=== PATIENT | male | born 1945 | race Caucasian/White ===

== ENCOUNTER 2022-12-08 10:46 | Outpatient (AMB) | payer OTHER, SELFPAY ==
--- NOTE | 2022-12-08 11:11 | A.OFFPC_ITS ---
Vital Signs 12/08/22 11:12 Height 5 ft 10 in Weight 175 lb BMI 25.1 BP 118/64 Blood Pressure Location Rt brachial Position Sitting Pulse 50 Pulse Source Pulse Oximeter Pulse Oximetry (%) 97 Oxygen Delivery Method Room Air Intake Visit Reasons: 2 month follow up Intake Note: Pt is here today for 2 months follow up visit on labs. Allergies No Known Allergies Allergy (Verified 12/08/22 11:20) Medication List - Last Reconciled 12/08/22 by Magalys Green MD aspirin 81 mg PO DAILY dapagliflozin propanediol (Farxiga) 10 mg PO DAILY flash glucose sensor (FreeStyle David 14 Day Sensor kit) As directed lisinopril 10 mg PO DAILY metformin 500 mg PO BID metoprolol succinate ER 25 mg PO DAILY rosuvastatin 10 mg PO DAILY semaglutide (Ozempic) 0.25 mg (0.368 mL) subcut QWEEK semaglutide (Ozempic) 0.5 mg (0.736 mL) subcut QWEEK Tobacco use date assessed: 12/08/22 Last assessed Fall Risk: 12/08/22 Dental Screening Dental Screen Date: 12/08/22 Did you have a dental visit in the last 12 months?: Yes Did you have a dental problem in the last 6 months where you did not have access to dental care?: No Was dental information given to patient?: Patient has dentist HPI 2 month follow up HPI Details Patient presents for the follow-up of type 2 diabetes hypertension hyperlipidemia chronic kidney disease stage 3. Patient started Ozempic 1 week ago. He reports fluctuating blood glucose occasionally low in the mornings with the readings below 50 and then increasing to over 200 after breakfast. Patient yet usually has high load of carbohydrates for breakfast including bread and rice cereal. He occasionally skips lunch working or has a sandwich in the hospital cafeteria. Patient usually has well-balanced and occasionally snack at night. He plays golf once a week otherwise does not exercise regularly. [facility] Medical History History of varicocele Surgical History Hx of tonsillectomy Family History Father No problems noted. Mother Cancer, Onset Age: 79 Sister Stroke Social History Housing: House Patient Tobacco Use Status: Never used Tobacco e-Cigarette/Vaping Use: Never Used Current occupational status: employed Cognitive needs: No Hearing needs: No Vision needs: Yes Questionnaire Thrive Questionnaire Date Thrive assessed: 07/07/22 KEISHA-7 AMB Questionnaire KEISHA-7 Date KEISHA - 7 assessed: 07/07/22 Source: Developed by Drs. Brendon Mckeon, Sandra Lopez, Dhruv Mcginnis and colleagues, with an educational cristin from [employer]. Review of Systems Const All systems reviewed & are unremarkable except as noted in HPI and below Reports no additional complaints Eyes Reports no additional complaints ENT Reports no additional complaints Card Reports no additional complaints Resp Reports no additional complaints GI Reports no additional complaints Reports no additional complaints Physical exam (Primary Care) Vital Signs: Last Vital Signs Pulse 50 12/08/22 11:12 BP 118/64 12/08/22 11:12 Pulse Ox 97 12/08/22 11:12 Oxygen Delivery Method Room Air 12/08/22 11:12 BMI result Body Mass Index 25.1 Tobacco/Smoking Status: Tobacco use Status Tobacco use date assessed 12/08/22 12/08/22 11:21 Patient Tobacco Use Status Never used Tobacco 12/08/22 11:21 e-Cigarette/Vaping Use Never Used 12/08/22 11:14 Thrive Assessment: Date of Thrive Assessment Date Thrive assessed 07/07/22 12/08/22 11:14 Const General: no acute distress HENMT Ears: hearing grossly normal bilaterally Resp Effort & Inspection: normal respiratory effort Auscultation: clear to auscultation bilaterally Cardio Rhythm: regular rhythm Heart sounds: S1 normal heart sound present and S2 normal heart sound present Assessment and Plan Assessment & Plan (1) CKD (chronic kidney disease) stage 3, GFR 30-59 ml/min: Comment: Normal renal ultrasound Code(s): N18.30 - Chronic kidney disease, stage 3 unspecified Plan: Avoid NSAIDs monitor renal function. 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 (4) DM type 2 (diabetes mellitus, type 2): Comment: >10 yrs, borderline diabetic retinopathy, ophthalmology exam annually Code(s): E11.9 - Type 2 diabetes mellitus without complications Plan: A1c is persistently high at 9.8. ADA diet regular physical activity discussed with the patient. Patient was advised to stop taking glyburide with metformin combination because of episodes of hypoglycemia and worsening renal function. Metformin 500 mg twice a day is prescribed instead. He was advised to continue Farxiga and Ozempic increasing the dose to 0.5 mg after the a month of 0.25 mg. Patient was advised to stop taking Actos. He will continue to monitor his blood glucose before and 2 hours after meals and if blood glucose is above 200 2 hours after meal short-acting insulin will be added before meals. Follow-up in 2 months with a fasting labs before Orders: Orders Vitamin B12 and Folate 2 Months D64.9 - Anemia, unspecified, E11.9 - Type 2 diabetes mellitus without complications, I10 - Essential (primary) hypertension, N18.30 - Chronic kidney disease, stage 3 unspecified Comprehensive [place] [facility] Panel Fast 2 Months D64.9 - Anemia, unspecified, E11.9 - Type 2 diabetes mellitus without complications, I10 - Essential (primary) hypertension, N18.30 - Chronic kidney disease, stage 3 unspecified Ferritin 2 Months D64.9 - Anemia, unspecified, E11.9 - Type 2 diabetes mellitus without complications, I10 - Essential (primary) hypertension, N18.30 - Chronic kidney disease, stage 3 unspecified Hemoglobin A1c 2 Months D64.9 - Anemia, unspecified, E11.9 - Type 2 diabetes mellitus without complications, I10 - Essential (primary) hypertension, N18.30 - Chronic kidney disease, stage 3 unspecified IRON PROFILE 2 Months D64.9 - Anemia, unspecified, E11.9 - Type 2 diabetes mellitus without complications, I10 - Essential (primary) hypertension, N18.30 - Chronic kidney disease, stage 3 unspecified Complete Blood Count Auto Diff 2 Months D64.9 - Anemia, unspecified, E11.9 - Type 2 diabetes mellitus without complications, I10 - Essential (primary) hypertension, N18.30 - Chronic kidney disease, stage 3 unspecified Reticulocyte Count 2 Months D64.9 - Anemia, unspecified, E11.9 - Type 2 diabetes mellitus without complications, I10 - Essential (primary) hypertension, N18.30 - Chronic kidney disease, stage 3 unspecified Medications: New metformin 500 mg PO BID 180 tabs 0RF Discontinued pioglitazone Discontinued Reason: Doctor's Order 45 mg PO DAILY 90 tabs 3RF glyburide-metformin 5-500 mg Discontinued Reason: Doctor's Order 2 tabs PO BID 360 tabs 1RF Coding Level of Care Code Est Pt Level 4 (57690) Diagnoses CKD (chronic kidney disease) stage 3, GFR 30-59 ml/min N18.30 Anemia D64.9 HTN (hypertension) I10 DM type 2 (diabetes mellitus, type 2) E11.9
[2022-12-08 11:12] VITALS: BP 118/64; PULSE 50; O2SAT 97; BMI 25.1
== END 2022-12-08 12:47 | disposition home or self-care (01) ==
PROVIDERS: PCP Internal Medicine; Visit Provider Internal Medicine
DX: I12.9 Hypertensive chronic kidney disease with stage 1 through stage 4 chronic kidney disease, or unspecified chronic kidney disease (principal); E11.22 Type 2 diabetes mellitus with diabetic chronic kidney disease; N18.30 Chronic kidney disease, stage 3 unspecified; D64.9 Anemia, unspecified
CPT/HCPCS: 99214

== ENCOUNTER 2023-01-08 15:24 | Outpatient (AMB) | payer OTHER, SELFPAY ==
[2023-01-08 15:26] VITALS: BP 106/64; PULSE 59; O2SAT 100; BMI 23.8
--- NOTE | 2023-01-08 15:26 | A.OFFPC_ITS ---
Vital Signs 01/08/23 15:26 Height 5 ft 10 in Weight 166 lb BMI 23.8 BP 106/64 Blood Pressure Location Rt brachial Position Sitting Pulse 59 Pulse Source Pulse Oximeter Pulse Oximetry (%) 100 Oxygen Delivery Method Room Air Intake Visit Reasons: elevated glucose Intake Note: Pt is here today for a follow up visit. Allergies No Known Allergies Allergy (Verified 01/08/23 15:28) Medication List - Last Reconciled 01/08/23 by Magalys Green MD aspirin 81 mg PO DAILY dapagliflozin propanediol (Farxiga) 10 mg PO DAILY flash glucose sensor (FreeStyle David 14 Day Sensor kit) As directed lisinopril 10 mg PO DAILY metformin 500 mg PO BID metoprolol succinate ER 25 mg PO DAILY rosuvastatin 10 mg PO DAILY semaglutide (Ozempic) 0.25 mg (0.368 mL) subcut QWEEK semaglutide (Ozempic) 0.5 mg (0.736 mL) subcut QWEEK Tobacco use date assessed: 12/08/22 HPI elevated glucose HPI Details Patient complains about losing weight decreased appetite and episodes of lightheadedness and increase blood glucose to over 300s. He increased Ozempic mg and his symptoms worsen. Patient denies polyuria polydipsia. Patient has been eating better diet. [facility] Medical History History of varicocele Surgical History Hx of tonsillectomy Family History Father No problems noted. Mother Cancer, Onset Age: 79 Sister Stroke Social History Housing: House Patient Tobacco Use Status: Never used Tobacco e-Cigarette/Vaping Use: Never Used Current occupational status: employed Cognitive needs: No Hearing needs: No Vision needs: Yes Questionnaire Thrive Questionnaire Date Thrive assessed: 07/07/22 KEISHA-7 AMB Questionnaire KEISHA-7 Date KEISHA - 7 assessed: 07/07/22 Source: Developed by Drs. Brendon Mckeon, Sandra Lopez, Dhruv Mcginnis and colleagues, with an educational cristin from [employer]. Review of Systems Const All systems reviewed & are unremarkable except as noted in HPI and below Reports no additional complaints Eyes Reports no additional complaints ENT Reports no additional complaints Card Reports no additional complaints Resp Reports no additional complaints GI Reports no additional complaints Physical exam (Primary Care) Vital Signs: Last Vital Signs Pulse 59 01/08/23 15:26 BP 106/64 01/08/23 15:26 Pulse Ox 100 01/08/23 15:26 Oxygen Delivery Method Room Air 01/08/23 15:26 BMI result Body Mass Index 23.8 Tobacco/Smoking Status: Tobacco use Status Tobacco use date assessed 12/08/22 01/08/23 15:31 Patient Tobacco Use Status Never used Tobacco 01/08/23 15:31 e-Cigarette/Vaping Use Never Used 01/08/23 15:31 Thrive Assessment: Date of Thrive Assessment Date Thrive assessed 07/07/22 01/08/23 15:31 Const General: no acute distress HENMT Face and sinus: Yes normal facial exam Neck Neck: Yes supple Resp Effort & Inspection: normal respiratory effort Auscultation: clear to auscultation bilaterally Cardio Rhythm: regular rhythm Heart sounds: S1 normal heart sound present and S2 normal heart sound present GI Palpation (GI): Soft to palpation Percussion: Yes normal to percussion Auscultation: normal bowel sounds Assessment and Plan Assessment & Plan (1) CKD (chronic kidney disease) stage 3, GFR 30-59 ml/min: Comment: Normal renal ultrasound Code(s): N18.30 - Chronic kidney disease, stage 3 unspecified Plan: Patient had a comprehensive panel at [place] this morning will obtain the results. (2) APC (atrial premature contractions): Comment: Echo 08/13 LNEF 60%, mild calcification of mitral and aortic valves, mild MR Code(s): I49.1 - Atrial premature depolarization (3) HTN (hypertension): Code(s): I10 - Essential (primary) hypertension Plan: Blood pressure is low and lisinopril will be decreased to 5 mg a day (4) DM type 2 (diabetes mellitus, type 2): Comment: >30 yrs, borderline diabetic retinopathy, ophthalmology exam annually Code(s): E11.9 - Type 2 diabetes mellitus without complications Plan: Blood work from this morning is pending. Ozempic will be discontinued and patient will be started 10 u of Lantus for the 1st week then increase to 20 units and Humalog up to 10 units before each meal for the glucose over 200. Patient will continue metformin and Farxiga for now. f/u in January Orders: Orders TSH reflex Free T4 1 Month E11.9 - Type 2 diabetes mellitus without complications, E78.5 - Hyperlipidemia, unspecified, I10 - Essential (primary) hypertension Lipid Panel 1 Month E11.9 - Type 2 diabetes mellitus without complications, E78.5 - Hyperlipidemia, unspecified, I10 - Essential (primary) hypertension Referrals Nephrology Referral N18.30 - Chronic kidney disease, stage 3 unspecified Medications: New insulin lispro (Humalog KwikPen (U-100) Insulin) 10 units (0.1 mL) subcut TID 15 mL 4RF lisinopril 5 mg PO DAILY 90 tabs 0RF insulin glargine (Lantus Solostar U-100 Insulin) 20 units (0.2 mL) subcut QAM 15 mL 4RF Discontinued semaglutide (Ozempic) for 4 weeks, Discontinued Reason: Doctor's Order 0.25 mg (0.368 mL) subcut QWEEK 3 mL 0RF semaglutide (Ozempic) after 4 weeks for 0.25 of Ozempic Discontinued Reason: Doctor's Order 0.5 mg (0.736 mL) subcut QWEEK 3 mL 0RF Coding Level of Care Code Est Pt Level 4 (37632) Diagnoses CKD (chronic kidney disease) stage 3, GFR 30-59 ml/min N18.30 APC (atrial premature contractions) I49.1 HTN (hypertension) I10 DM type 2 (diabetes mellitus, type 2) E11.9
== END 2023-01-08 16:12 | disposition home or self-care (01) ==
LOC: HO.HMGC 15:24
PROVIDERS: PCP Internal Medicine; Visit Provider Internal Medicine
DX: I12.9 Hypertensive chronic kidney disease with stage 1 through stage 4 chronic kidney disease, or unspecified chronic kidney disease (principal); N18.30 Chronic kidney disease, stage 3 unspecified; E11.22 Type 2 diabetes mellitus with diabetic chronic kidney disease; I49.1 Atrial premature depolarization
CPT/HCPCS: 99214

== ENCOUNTER 2023-02-16 11:49 | Outpatient (AMB) | payer OTHER, SELFPAY ==
--- NOTE | 2023-02-16 12:14 | A.OFFPC_ITS ---
Vital Signs 02/16/23 12:15 02/16/23 14:58 Height 5 ft 10 in Weight 177 lb BMI 25.4 BP 132/62 110/78 Blood Pressure Location Lt brachial Rt brachial Position Sitting Sitting Pulse 49 L Pulse Source Pulse Oximeter Pulse Oximetry (%) 97 Oxygen Delivery Method Room Air Intake Visit Reasons: 2 month follow up Intake Note: Pt is here today for his 2 mo, f/u Allergies No Known Allergies Allergy (Verified 01/08/23 15:28) Medication List - Last Reconciled 02/16/23 by Magalys Green MD aspirin 81 mg PO DAILY dapagliflozin propanediol (Farxiga) 10 mg PO DAILY flash glucose sensor (FreeStyle David 14 Day Sensor kit) As directed insulin lispro (Humalog KwikPen (U-100) Insulin) 10 units (0.1 mL) subcut TID lisinopril 5 mg PO DAILY metformin 500 mg PO BID metoprolol succinate ER 25 mg PO DAILY rosuvastatin 10 mg PO DAILY Tobacco use date assessed: 02/16/23 Fall risk assessment: No Falls in past year Last assessed Fall Risk: 02/16/23 Dental Screening Dental Screen Date: 02/16/23 Did you have a dental visit in the last 12 months?: Yes Did you have a dental problem in the last 6 months where you did not have access to dental care?: Yes Was dental information given to patient?: Patient has dentist HPI 2 month follow up HPI Details Patient presents for the follow-up of type 2 diabetes. He has been taking Lantus 10 units and Humalog before meals between 8-10 units. He reports the highest blood glucose around mid day 14:00 after lunch, up to 200 and occasionally hypoglycemia to 60s at night. Patient eats often carbohydrates including sandwiches and cereals. Hypertension hyperlipidemia are controlled on current medications. [facility] Medical History History of varicocele Surgical History Hx of tonsillectomy Family History Father No problems noted. Mother Cancer, Onset Age: 79 Sister Stroke Social History Housing: House Patient Tobacco Use Status: Never used Tobacco e-Cigarette/Vaping Use: Never Used Current occupational status: employed Cognitive needs: No Hearing needs: No Vision needs: Yes Questionnaire Thrive Questionnaire Date Thrive assessed: 07/07/22 KEISHA-7 AMB Questionnaire KEISHA-7 Date KEISHA - 7 assessed: 07/07/22 Source: Developed by Drs. Brendon Mckeon, Sandra Lopez, Dhruv Mcginnis and colleagues, with an educational cristin from [employer]. Review of Systems Const All systems reviewed & are unremarkable except as noted in HPI and below Reports no additional complaints Eyes Reports no additional complaints ENT Reports no additional complaints Card Reports no additional complaints Resp Reports no additional complaints GI Reports no additional complaints Reports no additional complaints Physical exam (Primary Care) Vital Signs: Last Vital Signs Pulse 49 L 02/16/23 12:15 BP 132/62 02/16/23 12:15 Pulse Ox 97 02/16/23 12:15 Oxygen Delivery Method Room Air 02/16/23 12:15 BMI result Body Mass Index 25.4 Tobacco/Smoking Status: Tobacco use Status Tobacco use date assessed 02/16/23 02/16/23 12:18 Patient Tobacco Use Status Never used Tobacco 02/16/23 12:15 e-Cigarette/Vaping Use Never Used 02/16/23 12:15 Thrive Assessment: Date of Thrive Assessment Date Thrive assessed 07/07/22 02/16/23 12:15 Const General: no acute distress HENIN General nose exam: Normal external nose present Mouth: Normal oral and palatal mucosa present Eyes General: appearance normal, both eyes and all related structures Neck Neck: Yes no lymphadenopathy and Yes supple Resp Effort & Inspection: normal respiratory effort Auscultation: clear to auscultation bilaterally Cardio Rhythm: regular rhythm Heart sounds: S1 normal heart sound present and S2 normal heart sound present GI Inspection: Yes normal to inspection Palpation (GI): Soft to palpation Percussion: Yes normal to percussion Assessment and Plan Assessment & Plan (1) CKD (chronic kidney disease) stage 3, GFR 30-59 ml/min: Comment: Normal renal ultrasound Code(s): N18.30 - Chronic kidney disease, stage 3 unspecified Plan: Monitor renal function avoid NSAIDs and continue Farxiga (2) Anemia: Comment: chronic disease, normal iron studies and B12 level 01/13 Code(s): D64.9 - Anemia, unspecified (3) DM type 2 (diabetes mellitus, type 2): Comment: >30 yrs, borderline diabetic retinopathy, ophthalmology exam annually Code(s): E11.9 - Type 2 diabetes mellitus without complications Plan: Improving improving glycemic control, ADA diet, decreasing simple carbohydrates,intake increasing protein and polyunsaturated fats intake recommend, regular physical activity discussed with the patient. He was advised to increase Humalog to 12-14 units before lunch with the largest carbohydrate load and have a snack before dinner to avoid hypoglycemia at night. Pt will continue the same medications and follow-up in 2 months with a fasting labs before (4) Hyperlipemia: Code(s): E78.5 - Hyperlipidemia, unspecified Plan: Continue statin Orders: Orders Complete Blood Count Auto Diff 2 Months D64.9 - Anemia, unspecified, E11.9 - Type 2 diabetes mellitus without complications, E78.5 - Hyperlipidemia, unspecif ied, N18.30 - Chronic kidney disease, stage 3 unspecified, Z98.890 - Other specified postprocedural states Lipid Panel 2 Months D64.9 - Anemia, unspecified, E11.9 - Type 2 diabetes mellitus without complications, E78.5 - Hyperlipidemia, unspecified, N18.30 - Chronic kidney disease, stage 3 unspecified, Z98.890 - Other specified postprocedural states Microalbumin, Random (w Creat) 2 Months D64.9 - Anemia, unspecified, E11.9 - Type 2 diabetes mellitus without complications, E78.5 - Hyperlipidemia, unspecified, N18.30 - Chronic kidney disease, stage 3 unspecified, [id number] - Other specified postprocedural states Comprehensive [place]. Panel Fast 2 Months D64.9 - Anemia, unspecified, E11.9 - Type 2 diabetes mellitus without complications, E78.5 - Hyperlipidemia, unspecified, N18.30 - Chronic kidney disease, stage 3 unspecified, Z98.890 - Other specified postprocedural states Hemoglobin A1c 2 Months D64.9 - Anemia, unspecified, E11.9 - Type 2 diabetes mellitus without complications, E78.5 - Hyperlipidemia, unspecified, N18.30 - Chronic kidney disease, stage 3 unspecified, Z98.890 - Other specified postprocedural states Coding Level of Care Code Est Pt Level 4 (07891) Diagnoses CKD (chronic kidney disease) stage 3, GFR 30-59 ml/min N18.30 Anemia D64.9 DM type 2 (diabetes mellitus, type 2) E11.9 Hyperlipemia E78.5
[2023-02-16 12:15] VITALS: BP 132/62; PULSE 49; O2SAT 97; BMI 25.4
[2023-02-16 14:58] VITALS: BP 110/78
== END 2023-02-16 15:02 | disposition home or self-care (01) ==
PROVIDERS: PCP Internal Medicine; Visit Provider Internal Medicine
DX: E11.22 Type 2 diabetes mellitus with diabetic chronic kidney disease (principal); N18.30 Chronic kidney disease, stage 3 unspecified; D64.9 Anemia, unspecified; E78.5 Hyperlipidemia, unspecified
CPT/HCPCS: 99214

== ENCOUNTER 2023-04-13 11:56 | Outpatient (AMB) | payer OTHER, SELFPAY ==
[2023-04-13 12:04] VITALS: BP 108/60; PULSE 48; O2SAT 98
--- NOTE | 2023-04-13 12:04 | MHC.PC.OV ---
Vital Signs 04/13/23 12:04 Height 5 ft 10 in BP 108/60 Blood Pressure Location Rt brachial Position Sitting Pulse 48 L Pulse Source Pulse Oximeter Pulse Oximetry (%) 98 Oxygen Delivery Method Room Air Intake Visit Reasons: 2 month follow up Intake Note: pt is here for 2 month f/u dm Residential Life Director Required: No Allergies No Known Allergies Allergy (Verified 04/13/23 12:05) Medication List - Last Reconciled 04/13/23 by Magalys Green MD aspirin 81 mg PO DAILY dapagliflozin propanediol (Farxiga) 10 mg PO DAILY flash glucose sensor (FreeStyle David 14 Day Sensor kit) As directed insulin lispro (Humalog KwikPen (U-100) Insulin) 10 units (0.1 mL) subcut TID lisinopril 5 mg PO DAILY metformin 500 mg PO BID metoprolol succinate ER 25 mg PO DAILY rosuvastatin 10 mg PO DAILY Tobacco use date assessed: 02/16/23 Fall risk assessment: No Falls in past year Last assessed Fall Risk: 04/13/23 Dental Screening Dental Screen Date: 04/13/23 Did you have a dental visit in the last 12 months?: Yes Did you have a dental problem in the last 6 months where you did not have access to dental care?: No Was dental information given to patient?: Patient has dentist HPI 2 month follow up HPI Details Patient presents for the follow-up. He reports improved blood glucose control but getting spikes up to 200 after lunch followed by dipping of glucose to less than 70 4 hours after lunch. Patient usually eats lunch in cafeteria with a higher carbohydrate load. He denies symptomatic hypoglycemic episode. He has been taking 12 units of Lantus at night and 6-10 before meals. [facility]LY [facility] Medical History History of varicocele Surgical History Hx of tonsillectomy Family History Father No problems noted. Mother Cancer, Onset Age: 79 Sister Stroke Social History Housing: House Patient Tobacco Use Status: Never used Tobacco e-Cigarette/Vaping Use: Never Used Current occupational status: employed Cognitive needs: No Hearing needs: No Vision needs: Yes Questionnaire Thrive Questionnaire Date Thrive assessed: 07/07/22 KEISHA-7 AMB Questionnaire KEISHA-7 Date KEISHA - 7 assessed: 07/07/22 Source: Developed by Drs. Brendon Mckeon, Sandra Lopez, Dhruv Mcginnis and colleagues, with an educational cristin from [employer]. Review of Systems Const All systems reviewed & are unremarkable except as noted in HPI and below Reports no additional complaints Eyes Reports no additional complaints ENT Reports no additional complaints Card Reports no additional complaints Resp Reports no additional complaints GI Reports no additional complaints Reports no additional complaints Physical exam (Primary Care) Vital Signs: Last Vital Signs Pulse 48 L 04/13/23 12:04 BP 108/60 04/13/23 12:04 Pulse Ox 98 04/13/23 12:04 Oxygen Delivery Method Room Air 04/13/23 12:04 Tobacco/Smoking Status: Tobacco use Status Tobacco use date assessed 02/16/23 04/13/23 12:05 Patient Tobacco Use Status Never used Tobacco 04/13/23 12:05 e-Cigarette/Vaping Use Never Used 04/13/23 12:05 Thrive Assessment: Date of Thrive Assessment Date Thrive assessed 07/07/22 04/13/23 12:05 Const General: no acute distress HENMT Head: Yes normal to inspection Eyes General: appearance normal, both eyes and all related structures Neck Neck: Yes no lymphadenopathy and Yes supple Resp Effort & Inspection: normal respiratory effort Auscultation: clear to auscultation bilaterally Cardio Rhythm: regular rhythm Heart sounds: S1 normal heart sound present and S2 normal heart sound present GI Palpation (GI): Soft to palpation Extrem Other: Diabetic foot exam skin is intact monofilament and vibration sensation intact bilaterally General: Yes no clubbing, cyanosis or edema Assessment and Plan Assessment & Plan (1) CKD (chronic kidney disease) stage 3, GFR 30-59 ml/min: Comment: Normal renal ultrasound Code(s): N18.30 - Chronic kidney disease, stage 3 unspecified Plan: Monitor renal function avoid NSAIDs, (2) Hyperlipemia: Code(s): E78.5 - Hyperlipidemia, unspecified Plan: Continue statin (3) HTN (hypertension): Code(s): I10 - Essential (primary) hypertension Plan: Continue metoprolol and lisinopril, patient will monitor his blood pressure if systolic increases to over 120 patient will try 7.5 mg of lisinopril (4) DM type 2 (diabetes mellitus, type 2): Comment: >30 yrs, borderline diabetic retinopathy, ophthalmology exam annually Code(s): E11.9 - Type 2 diabetes mellitus without complications Plan: A1c is down to 7.8, ADA diet increase physical activity eating small frequent meals and snacks between meals discussed with the patient. Follow-up in 3 months with a fasting labs. Orders: Orders Hemoglobin A1c 3 Months E11.9 - Type 2 diabetes mellitus without complications, E78.5 - Hyperlipidemia, unspecified, I10 - Essential (primary) hypertension, N18.30 - Chronic kidney disease, stage 3 unspecified Lipid Panel 3 Months E11.9 - Type 2 diabetes mellitus without complications, E78.5 - Hyperlipidemia, unspecified, I10 - Essential (primary) hypertension, N18.30 - Chronic kidney disease, stage 3 unspecified Microalbumin, Random (w Creat) 3 Months E11.9 - Type 2 diabetes mellitus without complications, E78.5 - Hyperlipidemia, unspecified, I10 - Essential (primary) hypertension, N18.30 - Chronic kidney disease, stage 3 unspecified Complete Blood Count Auto Diff 3 Months E11.9 - Type 2 diabetes mellitus without complications, E78.5 - Hyperlipidemia, unspecified, I10 - Essential (primary) hypertension, N18.30 - Chronic kidney disease, stage 3 unspecified Comprehensive [place]. Panel Fast 3 Months E11.9 - Type 2 diabetes mellitus without complications, E78.5 - Hyperlipidemia, unspecified, I10 - Essential (primary) hypertension, N18.30 - Chronic kidney disease, stage 3 unspecified PSA,Total (Free>4and<10) 3 Months E11.9 - Type 2 diabetes mellitus without complications, E78.5 - Hyperlipidemia, unspecified, I10 - Essential (primary) hypertension, N18.30 - Chronic kidney disease, stage 3 unspecified Vitamin D 25-OH Total 3 Months N18.30 - Chronic kidney disease, stage 3 unspecified Coding Level of Care Code Est Pt Level 4 (42863) Diagnoses CKD (chronic kidney disease) stage 3, GFR 30-59 ml/min N18.30 Hyperlipemia E78.5 HTN (hypertension) I10 DM type 2 (diabetes mellitus, type 2) E11.9
== END 2023-04-13 14:08 | disposition home or self-care (01) ==
PROVIDERS: PCP Internal Medicine; Visit Provider Internal Medicine
DX: I12.9 Hypertensive chronic kidney disease with stage 1 through stage 4 chronic kidney disease, or unspecified chronic kidney disease (principal); N18.30 Chronic kidney disease, stage 3 unspecified; E11.22 Type 2 diabetes mellitus with diabetic chronic kidney disease; E78.5 Hyperlipidemia, unspecified
CPT/HCPCS: 99214

== ENCOUNTER 2023-07-13 10:23 | Outpatient (AMB) | payer OTHER, SELFPAY ==
--- NOTE | 2023-07-13 10:34 | A.OFFPC_ITS ---
Vital Signs 07/13/23 10:35 Height 5 ft 10 in Weight 189 lb BMI 27.1 BP 120/76 Blood Pressure Location Lt brachial Position Sitting Pulse 49 L Pulse Source Pulse Oximeter Pulse Oximetry (%) 98 Oxygen Delivery Method Room Air Intake Visit Reasons: Annual PE Intake Note: Pt is here today for PE. Allergies No Known Allergies Allergy (Verified 07/13/23 10:38) Medication List - Last Reconciled 07/13/23 by Magalys Green MD aspirin 81 mg PO DAILY dapagliflozin propanediol (Farxiga) 10 mg PO DAILY flash glucose sensor (FreeStyle David 14 Day Sensor kit) As directed insulin lispro (Humalog KwikPen (U-100) Insulin) 10 units (0.1 mL) subcut TID lisinopril 5 mg PO DAILY metformin 500 mg PO BID metoprolol succinate ER 25 mg PO DAILY rosuvastatin 10 mg PO DAILY Tobacco use date assessed: 07/13/23 Fall risk assessment: No Falls in past year Last assessed Fall Risk: 07/13/23 Dental Screening Dental Screen Date: 07/13/23 Did you have a dental visit in the last 12 months?: Yes Did you have a dental problem in the last 6 months where you did not have access to dental care?: No Was dental information given to patient?: Patient has dentist HPI Annual PE HPI Details Patient presents for physical PFSH Medical History History of varicocele Surgical History Hx of tonsillectomy Family History Father No problems noted. Mother Cancer, Onset Age: 79 Sister Stroke Social History Housing: House Patient Tobacco Use Status: Never used Tobacco e-Cigarette/Vaping Use: Never Used Current occupational status: employed Cognitive needs: No Hearing needs: No Vision needs: Yes Questionnaire PHQ-9 Over the last 2 weeks, how often have you been bothered by any of the following problems? 1. Little interest or pleasure in doing things: not at all 2. Feeling down, depressed, or hopeless: not at all 3. Trouble falling or staying asleep, or sleeping too much: not at all 4. Feeling tired or having little energy: not at all 5. Poor appetite or overeating: not at all 6. Feeling bad about yourself - or that you are a failure or have let yourself or your family down: not at all 7. Trouble concentrating on things, such as reading the newspaper or watching television: not at all 8. Moving or speaking so slowly that other people could have noticed. Or the opposite - being so fidgety or restless that you have been moving around a lot more than usual: not at all 9. Thoughts that you would be better off or of hurting yourself in some way: not at all Total score: 0 Depression Screening Interpretation: Negative Depression Screening Done: Yes Source: Developed by Drs. Brendon Mckeon, Sandra Lopez, Dhruv Mcginnis and colleagues, with an educational cristin from [employer]. Thrive Questionnaire Date Thrive assessed: 07/13/23 I am a: Patient What is your living situation today?: I have a steady place to live Within the past 12 months, did the food you bought not last and you didn't have the money to get more?: Never true Within the past 12 months, did you worry whether your food would run out before you got money to buy more?: Never true Do you have trouble paying for medicines?: No Do you have trouble getting transportation to medical appointments?: No Do you have trouble paying your heating and electricity bill?: No Do you have trouble taking care of your child, family member or friend?: No Do you have trouble with day-to-day activities such as bathing, preparing meals, shopping, managing finances, etc.?: No Are you currently unemployed and looking for a job?: No Are you interested in more education?: No Please select the resources that you would like help with: None Currently or been in a relationship where the following occur: no concerns reported THRIVE Score: 0 AUDIT C Alcohol Use Questionnaire (AUDIT-C) 1. How often do you have a drink containing alcohol?: Monthly or less 2. How many drinks containing alcohol do you have on a typical day when you are drinking?: 1 or 2 3. How often do you have six or more drinks on one occasion?: Never Total Score: 1 KEISHA-7 AMB Questionnaire KEISHA-7 Date KEISHA - 7 assessed: 07/13/23 Feeling nervous, anxious, or on edge: 0 = Not at all Not being able to stop or control worryin = Not at all Worrying too much about different things: 0 = Not at all Trouble relaxin = Not at all Being so restless that it is hard to sit still: 0 = Not at all Becoming easily annoyed or irritable: 0 = Not at all Feeling afraid as if something awful might happen: 0 = Not at all Total KEISHA-7 score (0-4 normal; 5-9 mild; 10-14 moderate; 15-21 severe): 0 Source: Developed by Drs. Brendon Mckeon, Sandra Lopez, Dhruv Mcginnis and colleagues, with an educational cristin from [employer]. Review of Systems Const All systems reviewed & are unremarkable except as noted in HPI and below Reports no additional complaints Eyes Reports no additional complaints ENT Reports no additional complaints Card Reports no additional complaints Resp Reports no additional complaints GI Reports no additional complaints Reports no additional complaints Physical exam (Primary Care) Vital Signs: Last Vital Signs Pulse 49 L 07/13/23 10:35 BP 134/76 07/13/23 10:35 Pulse Ox 98 07/13/23 10:35 Oxygen Delivery Method Room Air 07/13/23 10:35 BMI result Body Mass Index 27.1 Tobacco/Smoking Status: Tobacco use Status Tobacco use date assessed 07/13/23 07/13/23 10:40 Patient Tobacco Use Status Never used Tobacco 07/13/23 10:40 e-Cigarette/Vaping Use Never Used 07/13/23 10:35 PHQ-9: PHQ-9 Score PHQ-9: Total score 0 07/13/23 11:04 Depression Screening Interpretation: Negative Thrive Assessment: Date of Thrive Assessment Date Thrive assessed 07/13/23 07/13/23 11:04 Currently or been in a relationship where the following occur: no concerns reported Const General: no acute distress HENMT Head: Yes normal to inspection Face and sinus: Yes normal facial exam Throat: Yes posterior oropharynx normal Neck Neck: Yes no lymphadenopathy and Yes supple Resp Effort & Inspection: normal respiratory effort Auscultation: clear to auscultation bilaterally Cardio Rhythm: regular rhythm Heart sounds: S1 normal heart sound present and S2 normal heart sound present GI Inspection: Yes normal to inspection Palpation (GI): Soft to palpation Extrem General: Yes no clubbing, cyanosis or edema Assessment and Plan Assessment & Plan (1) CKD (chronic kidney disease) stage 3, GFR 30-59 ml/min: Comment: Normal renal ultrasound Code(s): N18.30 - Chronic kidney disease, stage 3 unspecified Plan: monitor renal function, avoid nephrotoxins continue Farxiga (2) DM type 2 (diabetes mellitus, type 2): Comment: >30 yrs, borderline diabetic retinopathy, ophthalmology exam annually Code(s): E11.9 - Type 2 diabetes mellitus without complications Plan: A1c 7.8, ADA diet increase physical activity discussed with the patient. He was advised to have a snack between lunch and dinner to avoid mid afternoon hy poglycemia and increase dose of Humalog before dinner to keep to 2 hour postprandial glucose of less than 140. (3) HTN (hypertension): Code(s): I10 - Essential (primary) hypertension Plan: Continue current medications (4) Hyperlipemia: Code(s): E78.5 - Hyperlipidemia, unspecified Plan: Continue statin (5) Anemia: Comment: chronic disease, normal iron studies and B12 level 01/13 Code(s): D64.9 - Anemia, unspecified Plan: Monitor CBC (6) Annual physical exam: Code(s): Z00.00 - Encounter for general adult medical examination without abnormal findings Plan: Well-balanced diet regular physical activity discussed with the patient Orders: Orders Comprehensive [place]. Panel Fast 3 Months E11.9 - Type 2 diabetes mellitus without complications, E78.5 - Hyperlipidemia, unspecified, I10 - Essential (primary) hypertension, N18.30 - Chronic kidney disease, stage 3 unspecified Complete Blood Count Auto Diff 3 Months E11.9 - Type 2 diabetes mellitus without complications, E78.5 - Hyperlipidemia, unspecified, I10 - Essential (primary) hypertension, N18.30 - Chronic kidney disease, stage 3 unspecified Hemoglobin A1c 3 Months E11.9 - Type 2 diabetes mellitus without complications, E78.5 - Hyperlipidemia, unspecified, I10 - Essential (primary) hypertension, N18.30 - Chronic kidney disease, stage 3 unspecified Microalbumin, Random (w Creat) 3 Months E11.9 - Type 2 diabetes mellitus without complications, E78.5 - Hyperlipidemia, unspecified, I10 - Essential (primary) hypertension, N18.30 - Chronic kidney disease, stage 3 unspecified Coding Level of Care Code Est Pt Prev Care >65y(81217) Diagnoses CKD (chronic kidney disease) stage 3, GFR 30-59 ml/min N18.30 DM type 2 (diabetes mellitus, type 2) E11.9 HTN (hypertension) I10 Hyperlipemia E78.5 Anemia D64.9 Annual physical exam Z00.00
[2023-07-13 10:35] VITALS: BP 120/76; PULSE 49; O2SAT 98; BMI 27.1
== END 2023-07-13 11:33 | disposition home or self-care (01) ==
PROVIDERS: Visit Provider Internal Medicine
DX: Z00.00 Encounter for general adult medical examination without abnormal findings (principal); I12.9 Hypertensive chronic kidney disease with stage 1 through stage 4 chronic kidney disease, or unspecified chronic kidney disease; N18.30 Chronic kidney disease, stage 3 unspecified; E11.69 Type 2 diabetes mellitus with other specified complication; E78.5 Hyperlipidemia, unspecified; D64.9 Anemia, unspecified
CPT/HCPCS: 99397

== ENCOUNTER 2023-10-19 10:13 | Outpatient (AMB) | payer OTHER, SELFPAY ==
[2023-10-19 10:18] VITALS: BP 118/64; PULSE 52; O2SAT 98; BMI 27.1
--- NOTE | 2023-10-19 10:18 | MHC.PC.OV ---
Vital Signs 10/19/23 10:18 Height 5 ft 10 in Weight 189 lb BMI 27.1 BP 118/64 Blood Pressure Location Lt brachial Position Sitting Pulse 52 Pulse Source Pulse Oximeter Pulse Oximetry (%) 98 Oxygen Delivery Method Room Air Intake Visit Reasons: 3 month follow up Allergies No Known Allergies Allergy (Verified 10/19/23 10:25) Medication List - Last Reconciled 10/19/23 by Magalys Green MD aspirin 81 mg PO DAILY dapagliflozin propanediol (Farxiga) 10 mg PO DAILY flash glucose sensor (FreeStyle David 14 Day Sensor kit) As directed insulin glargine (Lantus Solostar U-100 Insulin) 10 units (0.1 mL) subcut QPM insulin lispro (Humalog KwikPen (U-100) Insulin) 10 units (0.1 mL) subcut TID lisinopril 5 mg PO DAILY metformin 500 mg PO BID metoprolol succinate ER 25 mg PO DAILY rosuvastatin 10 mg PO DAILY Tobacco use date assessed: 07/13/23 Dental Screening Dental Screen Date: 07/13/23 HPI 3 month follow up HPI Details Pt presents for f/u DM2, CKD 3, hyperlipid. PFSH Medical History History of varicocele Surgical History Hx of tonsillectomy Family History Father No problems noted. Mother Cancer, Onset Age: 79 Sister Stroke Social History Housing: House Patient Tobacco Use Status: Never used Tobacco e-Cigarette/Vaping Use: Never Used Current occupational status: employed Cognitive needs: No Hearing needs: No Vision needs: Yes Questionnaire Thrive Questionnaire Date Thrive assessed: 07/13/23 KEISHA-7 AMB Questionnaire KEISHA-7 Date KEISHA - 7 assessed: 07/13/23 Source: Developed by Drs. Brendon Mckeon, Sandra Lopez, Dhruv Mcginnis and colleagues, with an educational cristin from [employer]. Review of Systems Const All systems reviewed & are unremarkable except as noted in HPI and below Card Reports no additional complaints Resp Reports no additional complaints GI Reports no additional complaints Reports no additional complaints Musc Reports no additional complaints Physical exam (Primary Care) Vital Signs: Last Vital Signs Pulse 52 10/19/23 10:18 BP 118/64 10/19/23 10:18 Pulse Ox 98 10/19/23 10:18 Oxygen Delivery Method Room Air 10/19/23 10:18 BMI result Body Mass Index 27.1 Tobacco/Smoking Status: Tobacco use Status Tobacco use date assessed 07/13/23 10/19/23 10:18 Patient Tobacco Use Status Never used Tobacco 10/19/23 10:18 e-Cigarette/Vaping Use Never Used 10/19/23 10:18 Thrive Assessment: Date of Thrive Assessment Date Thrive assessed 07/13/23 10/19/23 10:18 Const General: no acute distress Resp Effort & Inspection: normal respiratory effort Auscultation: clear to auscultation bilaterally Cardio Rhythm: regular rhythm Heart sounds: S1 normal heart sound present and S2 normal heart sound present Extrem General: Yes no clubbing, cyanosis or edema Assessment and Plan Assessment & Plan (1) DM type 2 (diabetes mellitus, type 2): Comment: >30 yrs, borderline diabetic retinopathy, ophthalmology exam annually Code(s): E11.9 - Type 2 diabetes mellitus without complications Plan: A1C is 7.3, ADA , regular exercise discussed, Pt will increase Humalog from 6 units to 10 before dinner and cont the rest meds the same, f/u 3 mths (2) Hyperlipemia: Code(s): E78.5 - Hyperlipidemia, unspecified Plan: cont statin (3) CKD (chronic kidney disease) stage 3, GFR 30-59 ml/min: Comment: Normal renal ultrasound Code(s): N18.30 - Chronic kidney disease, stage 3 unspecified Plan: avoid nephrotoxixins, increase lisinopril to 7.5 mg for 2 weeks, check BMP and if stable increase Lisinopril to 10 mg f/u by BMP in 2 weeks, (4) APC (atrial premature contractions): Comment: Echo 08/13 LNEF 60%, mild calcification of mitral and aortic valves, mild MR Code(s): I49.1 - Atrial premature depolarization Plan: cont Metoprolol Orders: Orders Comprehensive [place]. Panel Fast 3 Months E11.9 - Type 2 diabetes mellitus without complications, E78.5 - Hyperlipidemia, unspecified, I10 - Essential (primary) hypertension Lipid Panel 3 Months E11.9 - Type 2 diabetes mellitus without complications, E78.5 - Hyperlipidemia, unspecified, I10 - Essential (primary) hypertension Complete Blood Count Auto Diff 3 Months E11.9 - Type 2 diabetes mellitus without complications, E78.5 - Hyperlipidemia, unspecified, I10 - Essential (primary) hypertension Hemoglobin A1c 3 Months E11.9 - Type 2 diabetes mellitus without complications, E78.5 - Hyperlipidemia, unspecified, I10 - Essential (primary) hypertension Microalbumin, Random (w Creat) 3 Months E11.9 - Type 2 diabetes mellitus without complications, E78.5 - Hyperlipidemia, unspecified, I10 - Essential (primary) hypertension Basic Metabolic Panel 2 Weeks I10 - Essential (primary) hypertension Basic Metabolic Panel 4 Weeks I10 - Essential (primary) hypertension Medications: New insulin glargine (Lantus Solostar U-100 Insulin) 10 units (0.1 mL) subcut QPM 15 mL 2RF Coding Level of Care Code Est Pt Level 4 (28183) Complex EM visit Add On G2211 Diagnoses DM type 2 (diabetes mellitus, type 2) E11.9 Hyperlipemia E78.5 CKD (chronic kidney disease) stage 3, GFR 30-59 ml/min N18.30 APC (atrial premature contractions) I49.1
== END 2023-10-19 12:50 | disposition home or self-care (01) ==
PROVIDERS: PCP Internal Medicine; Visit Provider Internal Medicine
DX: E11.22 Type 2 diabetes mellitus with diabetic chronic kidney disease (principal); N18.30 Chronic kidney disease, stage 3 unspecified; E78.5 Hyperlipidemia, unspecified; I49.1 Atrial premature depolarization
CPT/HCPCS: 99214; G2211

== ENCOUNTER 2024-02-29 09:49 | Outpatient (AMB) | payer OTHER, SELFPAY ==
--- NOTE | 2024-02-29 09:56 | A.OFFPC_ITS ---
Vital Signs 02/29/24 09:57 Height 5 ft 10 in Weight 191 lb BMI 27.4 BP 130/58 L Blood Pressure Location Lt brachial Position Sitting Pulse 55 Pulse Source Pulse Oximeter Pulse Oximetry (%) 96 Oxygen Delivery Method Room Air Intake Visit Reasons: reschedule from 01/17 Allergies No Known Allergies Allergy (Verified 10/19/23 10:25) Medication List - Last Reconciled 02/29/24 by Magalys Green MD aspirin 81 mg PO DAILY dapagliflozin propanediol (Farxiga) 10 mg PO DAILY flash glucose sensor (FreeStyle David 14 Day Sensor kit) As directed insulin glargine (Lantus Solostar U-100 Insulin) 12 units (0.12 mL) subcut QPM insulin lispro (Humalog KwikPen (U-100) Insulin) 10 units (0.1 mL) subcut TID lisinopril 5 mg PO DAILY metformin 500 mg PO BID metoprolol succinate ER 25 mg PO DAILY rosuvastatin 10 mg PO DAILY Tobacco use date assessed: 02/29/24 Fall risk assessment: No Falls in past year Last assessed Fall Risk: 02/29/24 Dental Screening Dental Screen Date: 02/29/24 Did you have a dental visit in the last 12 months?: Yes Did you have a dental problem in the last 6 months where you did not have access to dental care?: Yes Was dental information given to patient?: Patient has dentist HPI reschedule from 01/17 HPI Details Patient presents for the follow-up of type 2 diabetes hyperlipidemia chronic kidney disease stage 3. Patient reports elevated blood glucose around lunchtime and occasionally hypoglycemia at night. Patient usually eats lunch in cafeteria. He has been taking Humalog 8 units before meals, and occasionally forgets to eat a snack at the bedtime. [facility] Medical History History of varicocele Surgical History Hx of tonsillectomy Family History Father No problems noted. Mother Cancer, Onset Age: 79 Sister Stroke Social History Housing: House Patient Tobacco Use Status: Never used Tobacco e-Cigarette/Vaping Use: Never Used Current occupational status: employed Cognitive needs: No Hearing needs: No Vision needs: Yes Questionnaire PHQ-9 Over the last 2 weeks, how often have you been bothered by any of the following problems? 1. Little interest or pleasure in doing things: not at all 2. Feeling down, depressed, or hopeless: not at all 3. Trouble falling or staying asleep, or sleeping too much: not at all 4. Feeling tired or having little energy: not at all 5. Poor appetite or overeating: not at all 6. Feeling bad about yourself - or that you are a failure or have let yourself or your family down: not at all 7. Trouble concentrating on things, such as reading the newspaper or watching television: not at all 8. Moving or speaking so slowly that other people could have noticed. Or the opposite - being so fidgety or restless that you have been moving around a lot more than usual: not at all 9. Thoughts that you would be better off or of hurting yourself in some way: not at all Total score: 0 Depression Screening Interpretation: Negative Depression Screening Done: Yes 40409 - PHQ-9 Billing: Yes Source: Developed by Drs. Brendon Mckeon, Sandra Lopez, Dhruv Mcginnis and colleagues, with an educational cristin from [employer]. Thrive Questionnaire Date Thrive assessed: 07/13/23 I am a: Patient What is your living situation today?: I have a steady place to live Within the past 12 months, did the food you bought not last and you didn't have the money to get more?: Never true Within the past 12 months, did you worry whether your food would run out before you got money to buy more?: Never true Do you have trouble paying for medicines?: No Do you have trouble getting transportation to medical appointments?: No Do you have trouble paying your heating and electricity bill?: No Do you have trouble taking care of your child, family member or friend?: No Do you have trouble with day-to-day activities such as bathing, preparing meals, shopping, managing finances, etc.?: No Are you currently unemployed and looking for a job?: No Are you interested in more education?: No Please select the resources that you would like help with: None Currently or been in a relationship where the following occur: No concerns reported THRIVE Score: 0 AUDIT C Alcohol Use Questionnaire (AUDIT-C) 1. How often do you have a drink containing alcohol?: Monthly or less 2. How many drinks containing alcohol do you have on a typical day when you are drinking?: 1 or 2 3. How often do you have six or more drinks on one occasion?: Never Total Score: 1 KEISHA-7 AMB Questionnaire KEISHA-7 Date KEISHA - 7 assessed: 07/13/23 Feeling nervous, anxious, or on edge: 0 = Not at all Not being able to stop or control worryin = Not at all Worrying too much about different things: 0 = Not at all Trouble relaxin = Not at all Being so restless that it is hard to sit still: 0 = Not at all Becoming easily annoyed or irritable: 0 = Not at all Feeling afraid as if something awful might happen: 0 = Not at all Total KEISHA-7 score (0-4 normal; 5-9 mild; 10-14 moderate; 15-21 severe): 0 Source: Developed by Drs. Brendon Mckeon, Sandra Lopez, Dhruv Mcginnis and colleagues, with an educational cristin from [employer]. Review of Systems Const All systems reviewed & are unremarkable except as noted in HPI and below ENT Reports no additional complaints Card Reports no additional complaints Resp Reports no additional complaints GI Reports no additional complaints Reports no additional complaints Physical exam (Primary Care) Vital Signs: Last Vital Signs Pulse 55 02/29/24 09:57 BP 130/58 L 02/29/24 09:57 Pulse Ox 96 02/29/24 09:57 Oxygen Delivery Method Room Air 02/29/24 09:57 BMI result Body Mass Index 27.4 Tobacco/Smoking Status: Tobacco use Status Tobacco use date assessed 02/29/24 02/29/24 10:01 Patient Tobacco Use Status Never used Tobacco 02/29/24 09:56 e-Cigarette/Vaping Use Never Used 02/29/24 09:56 PHQ-9: PHQ-9 Score PHQ-9: Total score 0 02/29/24 09:56 Depression Screening Interpretation: Negative Thrive Assessment: Date of Thrive Assessment Date Thrive assessed 07/13/23 02/29/24 09:56 Currently or been in a relationship where the following occur: No concerns reported Const General: no acute distress Neck Neck: Yes supple Resp Effort & Inspection: normal respiratory effort Auscultation: clear to auscultation bilaterally Cardio Rhythm: regular rhythm Heart sounds: S1 normal heart sound present and S2 normal heart sound present GI Inspection: Yes normal to inspection Palpation (GI): Soft to palpation Extrem Other: Diabetic foot exam skin is intact monofilament intact bilaterally there is decreased sensation to vibration bilaterally Coding Level of Care Code Est Pt Level 4 (45986) Diagnoses DM type 2 (diabetes mellitus, type 2) E11.9 Anemia D64.9 CKD (chronic kidney disease) stage 3, GFR 30-59 ml/min N18.30 Hyperlipemia E78.5 Additional Codes PHQ-9 - 07070 - PHQ-9 Billing: Yes ([id number]) Assessment & Plan Assessment & Plan (1) DM type 2 (diabetes mellitus, type 2): Comment: >30 yrs, borderline diabetic retinopathy, ophthalmology exam annually Code(s): E11.9 - Type 2 diabetes mellitus without complications Category: Medical Plan: Patient had blood work done at [place] but results are not available. ADA diet regular physical activity discussed with the patient continue current medications follow-up in 3 months with a fasting labs before (2) Anemia: Comment: chronic disease, normal iron studies and B12 level 01/13 Code(s): D64.9 - Anemia, unspecified Category: Medical Plan: Monitor CBC (3) CKD (chronic kidney disease) stage 3, GFR 30-59 ml/min: Comment: Normal renal ultrasound Code(s): N18.30 - Chronic kidney disease, stage 3 unspecified Category: Medical Plan: Avoid nephrotoxins monitor renal function continue pharmacy (4) Hyperlipemia: Code(s): E78.5 - Hyperlipidemia, unspecified Category: Medical Plan: Continue statin Orders: Orders Comprehensive [place]. Panel Fast 3 Months D64.9 - Anemia, unspecified, E11.9 - Type 2 diabetes mellitus without complications, I10 - Essential (primary) hypertension, N18.30 - Chronic kidney disease, stage 3 unspecified Complete Blood Count Auto Diff 3 Months D64.9 - Anemia, unspecified, E11.9 - Type 2 diabetes mellitus without complications, I10 - Essential (primary) hypertension, N18.30 - Chronic kidney disease, stage 3 unspecified Microalbumin, Random (w Creat) 3 Months D64.9 - Anemia, unspecified, E11.9 - Type 2 diabetes mellitus without complications, I10 - Essential (primary) hypertension, N18.30 - Chronic kidney disease, stage 3 unspecified Lipid Panel 3 Months D64.9 - Anemia, unspecified, E11.9 - Type 2 diabetes mellitus without complications, I10 - Essential (primary) hypertension, N18.30 - Chronic kidney disease, stage 3 unspecified Hemoglobin A1c 3 Months D64.9 - Anemia, unspecified, E11.9 - Type 2 diabetes mellitus without complications, I10 - Essential (primary) hypertension, N18.30 - Chronic kidney disease, stage 3 unspecified Medications: Changed From insulin glargine (Lantus Solostar U-100 Insulin) 10 units (0.1 mL) subcut QPM 15 mL 2RF To insulin glargine (Lantus Solostar U-100 Insulin) 12 units (0.12 mL) subcut QPM 15 mL 2RF
[2024-02-29 09:57] VITALS: BP 130/58; PULSE 55; O2SAT 96; BMI 27.4
== END 2024-02-29 10:51 | disposition home or self-care (01) ==
PROVIDERS: PCP Internal Medicine; Visit Provider Internal Medicine
DX: E11.9 Type 2 diabetes mellitus without complications (principal); D64.9 Anemia, unspecified; N18.30 Chronic kidney disease, stage 3 unspecified; E78.5 Hyperlipidemia, unspecified

== ENCOUNTER → 2024-02-29 09:49 | Outpatient (BNVA) | payer OTHER, SELFPAY | PROVIDERS: PCP Internal Medicine; Visit Provider Internal Medicine | DX: E11.22 Type 2 diabetes mellitus with diabetic chronic kidney disease (principal); N18.30 Chronic kidney disease, stage 3 unspecified; D63.1 Anemia in chronic kidney disease; E78.5 Hyperlipidemia, unspecified; Z79.899 Other long term (current) drug therapy | CPT/HCPCS: 96127 ==

== ENCOUNTER 2024-05-23 13:21 | Outpatient (AMB) | payer OTHER, SELFPAY ==
[2024-05-23 13:26] VITALS: BP 120/60; PULSE 52; RESP 14; O2SAT 97; BMI 27.3
--- NOTE | 2024-05-23 13:26 | MHC.PC.OV ---
Vital Signs 05/23/24 13:26 Height 5 ft 10 in Weight 190 lb BMI 27.3 BP 120/60 Blood Pressure Location Lt brachial Position Sitting Respiration 14 Pulse 52 Pulse Source Pulse Oximeter Pulse Oximetry (%) 97 Intake Visit Reasons: 6 month follow up Intake Note: pt is here for 6 mon f.up [employer] Required: No Accompanied by: Spouse Allergies No Known Allergies Allergy (Verified 05/23/24 13:26) Medication List - Last Reconciled 05/23/24 by Magalys Green MD aspirin 81 mg PO DAILY dapagliflozin propanediol (Farxiga) 10 mg PO DAILY flash glucose sensor (FreeStyle David 14 Day Sensor kit) Test blood sugar 4 times per day, change sensor every 14 days insulin glargine (Lantus Solostar U-100 Insulin) 12 units (0.12 mL) subcut QPM insulin lispro (Humalog KwikPen (U-100) Insulin) 10 units (0.1 mL) subcut TID lisinopril 5 mg PO DAILY metformin 500 mg PO BID metoprolol succinate ER 25 mg PO DAILY rosuvastatin 10 mg PO DAILY Tobacco use date assessed: 05/23/24 Fall risk assessment: 1 Fall in past year Last assessed Fall Risk: 05/23/24 Dental Screening Dental Screen Date: 05/23/24 Did you have a dental visit in the last 12 months?: Yes Did you have a dental problem in the last 6 months where you did not have access to dental care?: No Was dental information given to patient?: Patient has dentist HPI 6 month follow up HPI Details Pt presents for f/u IDDM, HTN, hyperlipid, stable on meds. Patient broke his left fibula after a fall on ice in the beginning of March and started physical therapy. He is established with [facility]. REPLACED BY [facility] Medical History History of varicocele Surgical History Hx of tonsillectomy Family History Father No problems noted. Mother Cancer, Onset Age: 79 Sister Stroke Social History Housing: House Patient Tobacco Use Status: Never used Tobacco e-Cigarette/Vaping Use: Never Used Current occupational status: employed Cognitive needs: No Hearing needs: No Vision needs: Yes Questionnaire PHQ-9 Over the last 2 weeks, how often have you been bothered by any of the following problems? 1. Little interest or pleasure in doing things: not at all 2. Feeling down, depressed, or hopeless: not at all 3. Trouble falling or staying asleep, or sleeping too much: not at all 4. Feeling tired or having little energy: not at all 5. Poor appetite or overeating: not at all 6. Feeling bad about yourself - or that you are a failure or have let yourself or your family down: not at all 7. Trouble concentrating on things, such as reading the newspaper or watching television: not at all 8. Moving or speaking so slowly that other people could have noticed. Or the opposite - being so fidgety or restless that you have been moving around a lot more than usual: not at all 9. Thoughts that you would be better off or of hurting yourself in some way: not at all Total score: 0 Depression Screening Interpretation: Negative Depression Screening Done: Yes 06499 - PHQ-9 Billing: Yes Source: Developed by Drs. Brendon Mckeon, Sandra Lopez, Dhruv Mcginnis and colleagues, with an educational cristin from [employer]. Thrive Questionnaire Date Thrive assessed: 05/23/24 I am a: Patient What is your living situation today?: I have a steady place to live Within the past 12 months, did the food you bought not last and you didn't have the money to get more?: Never true Within the past 12 months, did you worry whether your food would run out before you got money to buy more?: Never true Do you have trouble paying for medicines?: No Do you have trouble getting transportation to medical appointments?: No Do you have trouble paying your heating and electricity bill?: No Do you have trouble taking care of your child, family member or friend?: No Do you have trouble with day-to-day activities such as bathing, preparing meals, shopping, managing finances, etc.?: No Are you currently unemployed and looking for a job?: No Are you interested in more education?: No Please select the resources that you would like help with: None Currently or been in a relationship where the following occur: No concerns reported THRIVE Score: 0 AUDIT C Alcohol Use Questionnaire (AUDIT-C) 1. How often do you have a drink containing alcohol?: 2-4 times a month 2. How many drinks containing alcohol do you have on a typical day when you are drinking?: 1 or 2 3. How often do you have six or more drinks on one occasion?: Never Total Score: 2 Score Reviewed/Action Taken: Yes KEISHA-7 AMB Questionnaire KEISHA-7 Date KEISHA - 7 assessed: 05/23/24 Feeling nervous, anxious, or on edge: 0 = Not at all Not being able to stop or control worryin = Not at all Worrying too much about different things: 0 = Not at all Trouble relaxin = Not at all Being so restless that it is hard to sit still: 0 = Not at all Becoming easily annoyed or irritable: 0 = Not at all Feeling afraid as if something awful might happen: 0 = Not at all Total KEISHA-7 score (0-4 normal; 5-9 mild; 10-14 moderate; 15-21 severe): 0 Source: Developed by Drs. Brendon Mckeon, Sandra Lopez, Dhruv Mcginnis and colleagues, with an educational cristin from [employer]. KEISHA-7 Assessment Billing KEISHA-7 Assessment Tool: KEISHA-7 Assessment 94612 Review of Systems Const All systems reviewed & are unremarkable except as noted in HPI and below Eyes Reports no additional complaints ENT Reports no additional complaints Card Reports no additional complaints Resp Reports no additional complaints GI Reports no additional complaints Reports no additional complaints Physical exam (Primary Care) Vital Signs: Last Vital Signs Pulse 52 05/23/24 13:26 Resp 14 05/23/24 13:26 BP 120/60 05/23/24 13:26 Pulse Ox 97 05/23/24 13:26 BMI result Body Mass Index 27.3 Tobacco/Smoking Status: Tobacco use Status Tobacco use date assessed 05/23/24 05/23/24 13:27 Patient Tobacco Use Status Never used Tobacco 05/23/24 13:27 e-Cigarette/Vaping Use Never Used 05/23/24 13:27 PHQ-9: PHQ-9 Score PHQ-9: Total score 0 05/23/24 13:36 Depression Screening Interpretation: Negative Thrive Assessment: Date of Thrive Assessment Date Thrive assessed 05/23/24 05/23/24 13:27 Currently or been in a relationship where the following occur: No concerns reported Const General: no acute distress HENMT Head: Yes normal to inspection Face and sinus: Yes normal facial exam Resp Effort & Inspection: normal respiratory effort Auscultation: clear to auscultation bilaterally Cardio Rate: bradycardic Rhythm: regular rhythm Heart sounds: S1 normal heart sound present and S2 normal heart sound present Coding Level of Care Code Est Pt Level 4 (64699) Diagnoses DM type 2 (diabetes mellitus, type 2) E11.9 Hyperlipemia E78.5 Anemia D64.9 CKD (chronic kidney disease) stage 3, GFR 30-59 ml/min N18.30 Ankle fracture, left S82.892A Additional Codes KEISHA-7 Assessment Billing - KEISHA-7 Assessment Tool: KEISHA-7 Assessment 29007 ([id number]) PHQ-9 - 31477 - PHQ-9 Billing: Yes ([id number]) Assessment & Plan Assessment & Plan (1) DM type 2 (diabetes mellitus, type 2): Comment: >30 yrs, borderline diabetic retinopathy, ophthalmology exam annually Code(s): E11.9 - Type 2 diabetes mellitus without complications Category: Medical Plan: A1c 7.6, ADA diet increase physical activity discussed with the patient. He was advised to increase Humalog dose from 8 units to 10 units before dinner, and monitor his glucose before bedtime. (2) Hyperlipemia: Code(s): E78.5 - Hyperlipidemia, unspecified Category: Medical Plan: Continue stay (3) Anemia: Comment: chronic disease, normal iron studies and B12 level 01/13 Code(s): D64.9 - Anemia, unspecified Category: Medical Plan: Monitor CBC (4) CKD (chronic kidney disease) stage 3, GFR 30-59 ml/min: Comment: Normal renal ultrasound Code(s): N18.30 - Chronic kidney disease, stage 3 unspecified Category: Medical Plan: Avoid nephrotoxins monitor renal function (5) Ankle fracture, left: Code(s): S82.892A - Other fracture of left lower leg, initial encounter for closed fracture Category: Medical Plan: Follow-up with ortho, obtain DEXA Orders: Orders Comprehensive [place]. Panel Fast 3 Months D64.9 - Anemia, unspecified, E11.9 - Type 2 diabetes mellitus without complications, E78.5 - Hyperlipidemia, unspecified, N18.30 - Chronic kidney disease, stage 3 unspecified IRON PROFILE 3 Months D64.9 - Anemia, unspecified, E11.9 - Type 2 diabetes mellitus without complications, E78.5 - Hyperlipidemia, unspecified, N18.30 - Chronic kidney disease, stage 3 unspecified Vitamin B12 and Folate 3 Months D64.9 - Anemia, unspecified, E11.9 - Type 2 diabetes mellitus without complications, E78.5 - Hyperlipidemia, unspecified, N18.30 - Chronic kidney disease, stage 3 unspecified Hemoglobin A1c 3 Months D64.9 - Anemia, unspecified, E11.9 - Type 2 diabetes mellitus without complications, E78.5 - Hyperlipidemia, unspecified, N18.30 - Chronic kidney disease, stage 3 unspecified Lipid Panel 3 Months D64.9 - Anemia, unspecified, E11.9 - Type 2 diabetes mellitus without complications, E78.5 - Hyperlipidemia, unspecified, N18.30 - Chronic kidney disease, stage 3 unspecified Microalbumin, Random (w Creat) 3 Months D64.9 - Anemia, unspecified, E11.9 - Type 2 diabetes mellitus without complications, E78.5 - Hyperlipidemia, unspecified, N18.30 - Chronic kidney disease, stage 3 unspecified Complete Blood Count Auto Diff 3 Months D64.9 - Anemia, unspecified, E11.9 - Type 2 diabetes mellitus without complications, E78.5 - Hyperlipidemia, unspecified, N18.30 - Chronic kidney disease, stage 3 unspecified XR DEXA axial skeleton Today S82.892A - Other fracture of left lower leg, initial encounter for closed fracture
--- OUTSIDE RECORDS SUMMARY | 2024-05-23 13:35 | XMS_ITS | Continuity of Care Document ---
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 This appears to be a stable ankle fracture pattern. I have offered him an ASO brace to wear rather than the Aircast as this is often better tolerated. He may continue to be weightbearing as tolerated. We discussed physical therapy to work on his range of motion and gait training and he was provided a prescription today. He will follow-up in 4 weeks for repeat evaluation with repeat x-rays of his left ankle at that time. Patient was prescribed a ASO lace up for above diagnosis. The patient is ambulatory but has weakness and/or instability of their Left ankle which requires stabilization from this semi-rigid / rigid orthosis to improve their function. Not available 05/03/2024 14:13:11 Plan of Treatment Reminders Order Date Submit Date Provider Last Modified By Organization Details Last Modified Time Details Appointments FOLLOW UP 2024 03:45P M Jess Allen MD Not available Not available Not available Lab None recorded . Referral None recorded . Procedures None recorded . Surgeries None recorded . Imaging XR, ankle, 3 or more view 2024 025 [facility], [address], [place], [address], 05/01/2024 18:35:17 Medication Orders None recorded . Patient TargetsNo targets recorded. Patient Instructions Encounter Date Encounter Id Patient Instructions Last Modified By Organization Details Last Modified Time 05/01/2024 [id number] views of the left ankle obtained weightbearing on 05/01/2024 demonstrate a Lovelace B nondisplaced fibula fracture. The mortise remains congruent. Not available 05/03/2024 14:12:09 Reason for Referral None Reported. Problems Name Problem SNOMED Code Status Onset Date Resolution Date Notes Provider Name and Address Organization Details Recorded Time Closed fracture of distal fibula 905647763 Active 024 OSIEL DUNCAN PA-C [address], [place], [address] , [place] [facility] 13:44:26 Problem Notes None recorded. Procedures Surgical History Date Name Laterality Status Provider Name and Address Organization Details Recorded Time repair of varicocele completed Vale Cervanteses [place] [facility] 04/02/2024 14:07:03 Imaging Results None recorded. Procedure Notes None recorded. Medical Equipment None Reported. Allergies No known drug allergies Medications Name Sig Start Date Stop Date Status Note LastModified by Organization Details LastModified Time metformin 500 mg tablet TAKE 1 TABLET BY MOUTH TWICE A DAY active Not Available Not Available No t Available lisinopril 10 mg tablet TAKE 1 TABLET BY MOUTH EVERY DAY 05/01 completed Not Available Not Available Not Available lisinopril 5 mg tablet TAKE 1 TABLET BY MOUTH EVERY DAY active Not Available Not Available No t Available metoprolol succinate ER 25 mg tablet,exte nded release 24 hr TAKE 1 TABLET BY MOUTH EVERY DAY active Not Available Not Available No t Available rosuvastati n 10 mg tablet TAKE 1 TABLET BY MOUTH EVERY DAY active Not Available Not Available No t Available Lantus Solostar U-100 Insulin 100 unit/mL (3 mL) subcutaneou s pen 12 UNIT (0.12 ML) SUBCUTANE OUSLY EVERY EVENING active Not Available Not Available No t Available Humalog KwikPen (U-100) Insulin 100 unit/mL subcutaneou s INJECT 10 UNITS SUBCUTANE OUSLY 3 TIMES DAILY active Not Available Not Available No t Available Farxiga 10 mg tablet TAKE 1 TABLET BY MOUTH ONCE DAILY active Not Available Not Available No t Available FreeStyle David 14 Day Sensor kit DIRECTED active Not Available Not Available No t Available BD Eli 2nd Gen Pen Needle 32 gauge x USE DIRECTED WITH HUMALOG AND LANTUS 4 TIMES A DAY active Not Available Not Available No t Available Vitals Date Recorded Body height Body mass index (BMI) Body weight Provider Name and Address Organization Details Last Updated DateTime 05/01/2024 177.8 cm 27.3 kg/m2 85869.55 g Emily Cummins [place] - [facility] 05/01/2024 16:14:25 Social History Question Answer Notes LastModified by Organizat ion Details LastModified Time Tobacco Smoking Status Never Smoker Vale galvan, [place] - [facility] 04/02/2024 14:06:48 What Is Your Level Of Alcohol Consumption? Occasional Information not available 04/02/2024 How Many Times Per Week Do You Consume Alcohol? 1-2 Times Per Week 1 Beer A Week Information not available 04/02/2024 Do You Use Any Illicit Or Recreational Drugs? No Information not available 04/02/2024 Are You Currently In School? No [email or web address] Information not available 05/01/2024 Do You Or Have You Ever Used Any Other Forms Of Tobacco Or Nicotine? No Information not available 04/02/2024 Sex: Unknown Functional Status None recorded. Mental Status None recorded. Family History Relationship Description Onset Age of this Age Resolved Age Notes LastModified by Organization Details LastModified Time Sister Blood coagulation disorder Not available 2023 14:05:54 Mother History of cancer of unknown primary site Not available 02/2024 14:05:59 Mother Rheumatoid arthritis Not available 2023 14:06:13 Medical History Condition Response Coronary Artery Disease N Gout N Hyperthyroidism N MRSA N Blood Transfusion N Emphysema N Hypothyroidism N COPD N Depression N Pacemaker N Vascular Disease N Gastrointestinal Disease N Anxiety Disorder N Autoimmune disease N Arthritis N Cancer N Stroke N High Cholesterol Y Neurologic Disorder N Liver Disease N Organ Transplant N Arrhythmia N Rheumatoid Arthritis N Fibromyalgia N Kidney Disease Y Allergies/Hayfever N Adverse Reaction to Anesthesia N Thyroid Problems N Anemia N Brain Injury N Heart Attack (DC) N Osteopenia N Diabetes Y Bleeding Disorder N Seizures/Epilepsy N AIDS/HIV N Congestive Heart Failure (CHF) N Asthma N Amputation N Reflux/GERD N Sleep Apnea N Hepatitis N Aneurysm N Heart Disease N Pulmonary Embolism N Hypertension N Osteoporosis N Past Encounters Encounter ID Performer Location Encounter Start Date Encounter Closed Date Diagnosis/Indication Diagnosis SNOMED-CT Code Diagnosis ICD10 Code Diagnosis Note [id number] [facility] [address] [place] [address] 04/02/2024 12:55:27 04/02/2024 13:53:52 Ankle pain 523131914 M25.572 Closed fra cture of distal fibula 530460719 S82.832A [id number] Jess Allen MD [facility] [address] [place] [address] 05/01/2024 15:43:53 05/01/2024 17:09:10 Closed fracture of distal fibula [id number] S82.832A Health Concerns Section Related Observation LastModified by Organization Detai ls LastModified Time None Recorded Concern Status LastModified by Organization Details LastModified Time None Recorded Payers Encounter Date Sequence Insurance Name Policy Number Policy Dobbs Covered Member ID Dobbs Member ID Guarantor Name 05/01/2024 1 [employer] [id number] Kamaljit Gupta [id number] Kamaljit Gupta Notes Date Note Type Note Provider Name and Address Organization Details Recorded Time 05/01/2024 text/html Date of injury: 03/29/2024 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 He was wearing the boot but transitioned out of this into an Aircast. He reports ongoing swelling. His pain is aching and a 2-5 out of 10. It is mild and intermittent and improving. He takes Tylenol without significant improvement. 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 He slipped down a few steps on Sunday. He had swelling in his ankle and went to [facility] ER. X-rays were obtained. Initially, there was question of a fracture, but eventually read as negative. He was given an Aircast and has been ambulating as tolerated with pain. He had ongoing pain and swelling. He presents today for orthopedic urgent care evaluation. He had ongoing pain and swelling. No numbness or tingling. 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 Past medical history significant for type 2 diabetes, chronic kidney disease stage III. 1 beer per day, denies recreational drug use or tobacco use. Jess Allen MD [address], [place], [address], [place] [facility] 05/03/2024 14:13:17
--- OUTSIDE RECORDS SUMMARY | 2024-05-23 13:36 | XMS_ITS | Data Portability ---
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 X-rays were compared to previous from [facility]. Previous imaging did not clearly demonstrate the fracture but was much more notable on today's visit. We discussed treatment options. Fracture is nondisplaced without evidence of widening of the mortise. We discussed options. He was eager to proceed with nonsurgical treatment. A cam boot was recommended for comfort and protection. Patient should use the boot when active. The boot can be removed to ice as well as during sitting, sleeping. He will follow-up in 3 weeks with our foot and ankle team, sooner for any complications. ___ Patient was seen and evaluated by Handy Zazueta PA-C in indirect conjunction with Dr. Allen. The provider agrees with the history, physical examination, recommended tests/diagnostic imaging, and treatment plan. [email or web address] Not available 04/02/2024 13:56:56 05/01/2024 05/01/2024 We discussed his nondisplaced Lovelace [...] Imaging XR, ankle, 3 or more view 2023 024 [email or web address] 1 [facility], [address], [place], [address], 04/03/2024 08:40:59 XR, ankle, 3 or more view 2024 025 [facility], [address], [place], [address], 05/01/2024 18:35:17 Medication Orders None recorded . Patient TargetsNo targets recorded. Patient Instructions Encounter Date Encounter Id Patient Instructions Last Modified By Organization Details Last Modified Time 04/02/2024 [id number] views of the left ankle were obtained in the [place] office on 04/02/2024 including weightbearing AP lateral and mortise compared to outside imaging from [facility]. X-rays demonstrated an oblique nondisplaced fracture to the left distal fibula at the level of the mortise. Vascular calcifications. No other fracture noted. Impression: Lovelace B fracture left distal fibula. Images interpreted by: Handy Zazueta PA-C [email or web address] Not available 04/02/2024 13:47:33 05/01/2024 [id number] views of the left ankle obtained weightbearing on 05/01/2024 demonstrate a Lovelace B nondisplaced fibula fracture. The mortise remains congruent. Not available 05/03/2024 14:12:09 Reason for Referral None Reported. Problems Name Problem SNOMED Code Status Onset Date Resolution Date Notes Provider Name and Address Organization Details Recorded Time Closed fracture of distal fibula [id number] Active 024 HANDY ZAZUETA PA-C [address], [place], [address] , [place] [facility] 13:44:26 Problem Notes None recorded. Procedures Surgical History Date Name Laterality Status Provider Name and Address Organization Details Recorded Time repair of varicocele completed [facility] [place] [facility] 04/02/2024 14:07:03 Imaging Results None recorded. [...] 2nd Gen Pen Needle 32 gauge x 32 USE DIRECTED WITH HUMALOG AND LANTUS 4 TIMES A DAY active Not Available Not Available No t Available Vitals Date Recorded Body height Body mass index (BMI) Body weight Provider Name and Address Organization Details Last Updated DateTime 04/02/2024 177.8 cm 27.3 kg/m2 66623.55 g Vale Ortiz [place] [facility] 04/02/2024 14:05:37 Date Recorded Body height Body mass index (BMI) Body weight Provider Name and Address Organization Details Last Updated DateTime 05/01/2024 177.8 cm 27.3 kg/m2 91836.55 g Emily Cummins [place] [facility] 05/01/2024 16:14:25 Social History Question Answer Notes LastModified by Organizat ion Details LastModified Time Tobacco Smoking Status Never Smoker Vale Ortiz [place] - [facility] 04/02/2024 14:06:48 What Is Your Level [...] Artery Disease N Gout N Hyperthyroidism N Blood Transfusion N MRSA N Emphysema N Depression N COPD N Hypothyroidism N Pacemaker N Vascular Disease N Gastrointestinal Disease N Anxiety Disorder N Autoimmune disease N Arthritis N Cancer N Stroke N High Cholesterol Y Neurologic Disorder N Liver Disease N Organ Transplant N Arrhythmia N Rheumatoid Arthritis N Fibromyalgia N Kidney Disease Y Allergies/Hayfever N Adverse Reaction to Anesthesia N Thyroid Problems N Anemia N Brain Injury N Heart Attack (TN) N Osteopenia N Diabetes Y Bleeding Disorder N Seizures/Epilepsy N AIDS/HIV N Congestive Heart Failure (CHF) N Asthma N Amputation N Reflux/GERD N Sleep Apnea N Hepatitis N Aneurysm N Heart Disease N Pulmonary Embolism N Hypertension N Osteoporosis N Past Encounters Encounter ID Performer Location Encounter Start Date Encounter Closed Date Diagnosis/Indication Diagnosis SNOMED-CT Code Diagnosis ICD10 Code Diagnosis Note [id number] [facility] [address] [place] [address] 04/02/2024 12:55:27 04/02/2024 13:53:52 Ankle pain [id number] M25.572 Closed fra cture of distal fibula [id number] S82.832A [id number] Jess Allen MD [facility] [address] [place] [address] 05/01/2024 15:43:53 05/01/2024 17:09:10 Closed fracture of distal fibula 713570162 S82.832A Health Concerns Section Related Observation LastModified by Organization Detai ls LastModified Time None Recorded Concern Status LastModified by Organization Details LastModified Time None Recorded Advance Directives Directive None Recorded Payers Encounter Date Sequence Insurance Name Policy Number Policy Dobbs Covered Member ID Dobbs Member ID Guarantor Name 04/02/2024 1 [employer] [id number] Kamaljit Gupta [id number] Kamaljit Gupta 04/02/2024 2 MEDICARE B-CT: NGS Kamaljit Gupta [id number] Kamaljit Leighman 05/01/2024 1 [employer] [id number] Kamaljit Gupta [id number] Kamaljit Gupta Notes Date Note Type Note Provider Name and Address Organization Details Recorded Time 04/02/2024 text/html 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 He slipped down a few steps on Sunday. He had swelling in his ankle and went to [facility] ER. X-rays were obtained. Initially, there was question of a fracture, but eventually read as negative. He was given an Aircast and has been ambulating as tolerated with pain. He had ongoing pain and swelling. He presents today for orthopedic urgent care evaluation. He had ongoing pain and swelling. No numbness or tingling. 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 Past medical history significant for type 2 diabetes, chronic kidney disease stage III. 1 beer per day, denies recreational drug use or tobacco use. 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 He was wearing the boot but transitioned out of this into an Aircast. He reports ongoing swelling. His pain is aching and a 2-5 out of 10. It is mild and intermittent and improving. He takes Tylenol without significant improvement. 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 He slipped down a few steps on Sunday. He had swelling in his ankle and went to [facility] ER. X-rays were obtained. Initially, there was question of a fracture, but eventually read as negative. He was given an Aircast and has been ambulating as tolerated with pain. He had ongoing pain and swelling. He presents today for orthopedic urgent care evaluation. He had ongoing pain and swelling. No numbness or tingling. 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 Past medical history significant for type 2 diabetes, chronic kidney disease stage III. 1 beer per day, denies recreational drug use or tobacco use. Jess Allen MD [address], [place], [address], [place] [facility] 05/03/2024 14:13:17
--- OUTSIDE RECORDS SUMMARY | 2024-05-23 13:36 | XMS_ITS | Clinical Summary ---
Author Organization [facility] Address [address] [place] [id number] Phone Care Team Providers Care Porcelain Slusher Name Role Phone Tito Long MD Primary Care Provider [phone] Allergies No known active allergies Medications No known medications Encounters Date Type Department Care Team Description 03/29/2024 9:09 PM EST - 03/29/2024 10:45 PM EST Emergency [facility] Emergency [address] [place] [id number] Dia Del Real DO Sprain of left ankle, initial encounter (Primary Dx) Discharge Disposition: Home or Self Care 02/27/2024 Lab Requisition [facility] - Main Lab [address] [facility] [place] [address] from Last 3 Months Medical History Medical History Date Comments Diabetes (CMS/HCC) DX:Diabetes ( HCC) Hyperlipidemia DX:Hyperlipidemi a Family History Relation Name Status Comments Father Mother Social History Tobacco Use Types Packs/Day Years Used Date Smoking Tobacco: Never Smokeless Tobacco: Never Alcohol Use Standard Drinks/Week Comments Yes 2 (1 standard drink = 0.6 oz pur e alcohol) Sex and Gender Information Value Date Recorded Sex Assigned at Male 03/29/2024 10:12 PM EST Gender Identity Male 03/29/2024 10:12 PM EST Sexual Orientation Straight 03/29/2024 10 :12 PM EST Job Start Date Occupation Industry Not on file Not on file Not on file Obstetrics History Last Filed Vital Signs Vital Sign Reading Time Taken Comments Blood Pressure 152/67 03/29/2024 9:02 PM EST Pulse 70 03/29/2024 9:02 PM EST Temperature 37.1 ??C (98.8 ??F) 03/29/2024 9:02 PM ES T Respiratory Rate 16 03/29/2024 9:02 PM EST Oxygen Saturation 96% 03/29/2024 9:02 PM EST Inhaled Oxygen Concentration - - Weight 86.2 kg (190 lb) 03/29/2024 9:02 PM EST Height 177.8 cm (5' 10 ) 03/29/2024 9:02 PM EST Body Mass Index 27.26 03/29/2024 9:02 PM EST Plan of Treatment Health Maintenance Due Date Last Done Comments Pneumococcal Vaccine: 65+ Years (1 of 2 - PCV) 08/22/1953 Diabetes: Annual Foot Exam 08/22/1957 Diabetes: Annual Retina Eye Exam 08/22/1957 DTaP,Tdap,and Td Vaccines (1 - Tdap) 08/22/1966 Zoster Vaccines (1 of 2) 08/22/1997 Depression Screening 05/29/2019 Falls Risk Assessment 05/29/2019 Hepatitis C Screening 05/29/2019 Social Influencers of Health Screening 05/29/2019 Diabetes: Blood Sugar Control Test (HGBA1C) 11/17/2024 05/20/2024, 02/27/2024 Diabetes: Annual Urine Albumin-Creatinine Ratio (uACR) 05/20/2025 05/20/2024, 02/27/2024 Diabetes: Annual GFR (Glomerular Filtration Rate) 05/20/2025 05/20/2024, 02/27/2024 Hypertension/CHF/CAD Annual BMP Blood Test 05/20/2025 05/20/2024, 02/27/2024 Cholesterol Screening (Lipid Panel) 05/20/2029 05/20/2024, 02/27/2024 COVID-19 Vaccine Completed 01/16/2024, 10/2022, 05/09/2022, Additional history exists RSV Immunization Patients 60+ Years Old Completed 01/16/2024 Influenza Vaccine Completed 03/10/2024, , 02/22/2021, Additional history exists HIB Vaccines Aged Out No longer eligi ble based on patient's age to complete this topic HPV Vaccines Aged Out No longer eligi ble based on patient's age to complete this topic Hepatitis A Vaccines Aged Out No long er eligible based on patient's age to complete this topic Hepatitis B Vaccines Aged Out No long er eligible based on patient's age to complete this topic IPV Vaccines Aged Out No longer eligi ble based on patient's age to complete this topic MMR Vaccines Aged Out No longer eligi ble based on patient's age to complete this topic Meningococcal ACWY Vaccine Aged Out N o longer eligible based on patient's age to complete this topic RSV Immunization Patients Under 20 months Aged Out No longer eligible based on patient's age to complete this topic Varicella Vaccines Aged Out No longer eligible based on patient's age to complete this topic Procedures Procedure Name Priority Date/Time Associated Diagnosis Comments MICROALBUMIN CREATININE URINE RATIO Routine 05/20/2024 12:52 PM EST Chronic kidney disease, stage III (moderate) (CMS/HCC) Anemia, unspecified Diabetes mellitus (CMS/HCC) Essential hypertension, malignant HEMOGLOBIN A1C Routine 05/20/2024 12:44 PM EST Chronic kidney disease, stage III (moderate) (CMS/HCC) Anemia, unspecified Diabetes mellitus (CMS/HCC) Essential hypertension, malignant LIPID PANEL WITH REFLEX TO DIRECT LDL Routine 05/20/2024 12:44 PM EST Chronic kidney disease, stage III (moderate) (CMS/HCC) Anemia, unspecified Diabetes mellitus (CMS/HCC) Essential hypertension, malignant COMPLETE BLOOD COUNT Routine 05/20/2024 12:44 PM EST Chronic kidney disease, stage III (moderate) (CMS/HCC) Anemia, unspecified Diabetes mellitus (CMS/HCC) Essential hypertension, malignant COMPREHENSIVE METABOLIC PANEL Routine 05/20/2024 12:44 PM EST Chronic kidney disease, stage III (moderate) (CMS/HCC) Anemia, unspecified Diabetes mellitus (CMS/HCC) Essential hypertension, malignant XR ANKLE 3+ VIEWS LEFT STAT 9:20 PM EST CBC WITH AUTO DIFFERENTIAL Routine 02/27/2024 12:39 PM EST Essential hypertension, benign Diabetes mellitus (CMS/HCC) Hyperlipemia MICROALBUMIN CREATININE URINE RATIO Routine 02/27/2024 12:39 PM EST Essential hypertension, benign Diabetes mellitus (CMS/HCC) Hyperlipemia HEMOGLOBIN A1C Routine 02/27/2024 12:39 PM EST Essential hypertension, benign Diabetes mellitus (CMS/HCC) Hyperlipemia CBC AND DIFFERENTIAL Routine 02/27/2024 12:39 PM EST Essential hypertension, benign Diabetes mellitus (CMS/HCC) Hyperlipemia LIPID PANEL WITH REFLEX TO DIRECT LDL Routine 02/27/2024 12:39 PM EST Essential hypertension, benign Diabetes mellitus (CMS/HCC) Hyperlipemia COMPREHENSIVE METABOLIC PANEL Routine 02/27/2024 12:39 PM EST Essential hypertension, benign Diabetes mellitus (CMS/HCC) Hyperlipemia from Last 3 Months Results * (ABNORMAL) Microalbumin creatinine urine ratio (05/20/2024 12:52 PM EST) Only the most recent of2 resultswithin the time period is included. Creatinine, Urine 89.0 mg/dL LAB CHEMISTRY METHOD 05/20/2024 3:12 PM EST [facility] Microalb, Ur 31.9(H) 0.0 - 29.0 mg/L LAB CHEMISTRY METHOD 05/20/2024 3:12 PM EST [facility] Microalb/Crea t Ratio 36(H) <30 mg/g creat LAB CHEMISTRY METHOD 05/20/2024 3:12 PM EST [facility] Urine Urine specimen obtained by clean catch procedure / Unknown Non-blood Collection / Unknown 05/20/2024 12:52 PM EST 05/20/2024 1:21 PM EST Magalys Green MD LAB URINE ORDERABLES [facility] [address] [place] [address], [place] [phone] * Lipid panel with reflex to direct LDL (05/20/2024 12:44 PM EST) Only the most recent of2 resultswithin the time period is included. Cholesterol 162 0 - 200 mg/dL LAB CHEMISTRY METHOD 05/20/2024 2:58 PM EST [facility] Triglycerides 102 0 - 150 mg/dL LAB CHEMISTRY METHOD 05/20/2024 2:58 PM EST [facility] HDL 62 >=40 mg/dL LAB CHEMISTRY METHOD 05/20/2024 2:58 PM EST [facility] LDL Calculated 80 0 - 100 mg/dL LAB CHEMISTRY METHOD 05/20/2024 2:58 PM [facility] VLDL Cholesterol Kevin 20.4 mg/dL LAB CHEMISTRY METHOD 05/20/2024 2:58 PM EST [facility] Non HDL Chol. (LDL+VLDL) 100 <145 mg/dL LAB CHEMISTRY METHOD 05/20/2024 2:58 PM EST [facility] Chol/HDL Ratio 2.6 0.0 - 4.4 LAB CHEMISTRY METHOD 05/20/2024 2:58 PM EST [facility] Blood Venous blood specimen / Unknown Venipuncture / Unknown 05/20/2024 12:44 PM EST 05/20/2024 1:22 PM EST Magalys Green MD LAB BLOOD ORDERABLES [facility] [address] [place] [address], [place] [phone] * (ABNORMAL) Complete blood count (05/20/2024 12:44 PM EST) Pathologist [facility] [place] WBC 7.2 4.8 - 10.8 K/mcL LAB HEMETOLOGY METHOD 05/20/2024 1:39 PM EST [facility] RBC 4.40(L) 4.50 - 5.50 M/mcL LAB HEMETOLOGY METHOD 05/20/2024 1:39 PM [facility] Hemoglobin 12.7(L) 13.5 - 17.5 g/dL LAB HEMETOLOGY METHOD 05/20/2024 1:39 PM [facility] Hematocrit 39.0(L) 42.0 - 54.0 % LAB HEMETOLOGY METHOD 05/20/2024 1:39 PM [facility] MCV 89.7 79.0 - 98.0 FL LAB HEMETOLOGY METHOD 05/20/2024 1:39 PM [facility] MCH 29.2 27.0 - 32.0 pcg LAB HEMETOLOGY METHOD 05/20/2024 1:39 PM [facility] MCHC 32.6 32.0 - 37.0 g/dL LAB HEMETOLOGY METHOD 05/20/2024 1:39 PM [facility] RDW 13.9 11.0 - 15.0 % LAB HEMETOLOGY METHOD 05/20/2024 1:39 PM [facility] Platelets 157 130 - 400 K/mcL LAB HEMETOLOGY METHOD 05/20/2024 1:39 PM [facility] MPV 12.0(H) 7.0 - 11.0 FL LAB HEMETOLOGY METHOD 05/20/2024 1:39 PM [facility] NRBC 0.0 <1.0 % LAB HEMETOLOGY METHOD 05/20/2024 1:39 PM [facility] NRBC Absolute 0.00 <0.10 K/mcL LAB HEMETOLOGY METHOD 05/20/2024 1:39 PM [facility] Blood Venous blood specimen / Unknown Venipuncture / Unknown 05/20/2024 12:44 PM EST 05/20/2024 1:22 PM EST Magalys Green MD LAB BLOOD ORDERABLES [facility] [address] [place] [address], * (ABNORMAL) Hemoglobin A1c (05/20/2024 12:44 PM EST) Only the most recent of2 resultswithin the time period is included. Hemoglobin A1C 7.6(H) <6.5 % LAB CHEMISTRY METHOD 05/20/2024 9:14 PM EST [facility] Mean Bld Glu Estim. 171 mg/dL LAB CHEMISTRY METHOD 05/20/2024 9:14 PM [facility] Blood Venous blood specimen / Unknown Venipuncture / Unknown 05/20/2024 12:44 PM EST 05/20/2024 1:22 PM EST Magalys Green MD LAB BLOOD ORDERABLES Performing Organization Address City/[facility]/ZIP Co de Phone Number [facility] [address] [place] [address], * (ABNORMAL) Comprehensive metabolic panel (05/20/2024 12:44 PM EST) Only the most recent of2 resultswithin the time period is included. Sodium 138 133 - 145 mmol/L LAB CHEMISTRY METHOD 05/20/2024 2:58 PM [facility] Potassium 4.4 3.5 - 5.5 mmol/L LAB CHEMISTRY METHOD 05/20/2024 2:58 PM [facility] Chloride 107 96 - 110 mmol/L LAB CHEMISTRY METHOD 05/20/2024 2:58 PM [facility] CO2 25 21 - 32 mmol/L LAB CHEMISTRY METHOD 05/20/2024 2:58 PM [facility] Anion Gap 6 3 - 11 LAB CHEMISTRY METHOD 05/20/2024 2:58 PM [facility] Glucose 109(H) 70 - 100 mg/dL LAB CHEMISTRY METHOD 05/20/2024 2:58 PM [facility] BUN 34(H) 5 - 25 mg/dL LAB CHEMISTRY METHOD 05/20/2024 2:58 PM [facility] Creatinine 1.57(H) 0.70 - 1.30 mg/dL LAB CHEMISTRY METHOD 05/20/2024 2:58 PM [facility] eGFR 45(L) >=60 mL/min/1. 73m2 LAB CHEMISTRY METHOD 05/20/2024 2:58 PM [facility] Comment:Calculation based on the??Chronic Kidney Disease Epidemiology Collaboration (CKD-EPI) equation refit??without adjustment for race. BUN/Creatinine Ratio 21.7 LAB CHEMISTRY METHOD 05/20/2024 2:58 PM [facility] Calcium 9.5 8.5 - 10.5 mg/dL LAB CHEMISTRY METHOD 05/20/2024 2:58 PM [facility] AST (SGOT) 11 10 - 42 unit/L LAB CHEMISTRY METHOD 05/20/2024 2:58 PM [facility] ALT (SGPT) 17 10 - 60 unit/L LAB CHEMISTRY METHOD 05/20/2024 2:58 PM [facility] Alkaline Phosphatase 93 42 - 121 unit/L LAB CHEMISTRY METHOD 05/20/2024 2:58 PM [facility] Total Protein 7.1 6.0 - 8.0 g/dL LAB CHEMISTRY METHOD 05/20/2024 2:58 PM [facility] Albumin 3.9 3.2 - 5.0 g/dL LAB CHEMISTRY METHOD 05/20/2024 2:58 PM [facility] Total Bilirubin 0.4 0.0 - 1.4 mg/dL LAB CHEMISTRY METHOD 05/20/2024 2:58 PM [facility] Blood Venous blood specimen / Unknown Venipuncture / Unknown 05/20/2024 12:44 PM EST 05/20/2024 1:22 PM EST Magalys Green MD LAB BLOOD ORDERABLES [facility] [address] [place] [address], * XR Ankle 3+ Views Left (03/29/2024 9:20 PM EST) Anatomical Region Laterality Modality Lower Extremities, Ankle Left Radiogr aphic Imaging 03/29/2024 9:59 PM EST Impressions 03/29/2024 9:59 PM EST Soft tissue swelling at the lateral malleolus without acute fracture. This document has been electronically signed by: Sancho Cobos MD on 03/29/2024 21:59:24 Narrative 03/29/2024 9:59 PM EST 3 view left ankle Comparison: None Findings: Soft tissue swelling at the lateral malleolus No acute fractures or dislocations. Plantar calcaneal spur. No ankle effusion. No radiopaque foreign body. Vascular calcifications. Procedure Note Sancho Cobos MD - 03/29/2024 3 view left ankle Comparison: None Findings: Soft tissue swelling at the lateral malleolus No acute fractures or dislocations. Plantar calcaneal spur. No ankle effusion. No radiopaque foreign body. Vascular calcifications. IMPRESSION: Soft tissue swelling at the lateral malleolus without acute fracture. This document has been electronically signed by: Sancho Cobos MD on 03/29/2024 21:59:24 Dia Fitzpatrickny Gt DO IMG XR PROCEDURES * (ABNORMAL) CBC auto differential (02/27/2024 12:39 PM EST) WBC 8.1 4.8 - 10.8 K/[facility] LAB HEMETOLOGY METHOD 02/27/2024 1:17 PM EST [facility] RBC 4.50 4.50 - 5.50 M/[facility] LAB HEMETOLOGY METHOD 02/27/2024 1:17 PM [facility] Hemoglobin 13.1(L) 13.5 - 17.5 g/dL LAB HEMETOLOGY METHOD 02/27/2024 1:17 PM [facility] Hematocrit 40.6(L) 42.0 - 54.0 % LAB HEMETOLOGY METHOD 02/27/2024 1:17 PM [facility] MCV 90.6 79.0 - 98.0 FL LAB HEMETOLOGY METHOD 02/27/2024 1:17 PM [facility] MCH 29.2 27.0 - 32.0 pcg LAB HEMETOLOGY METHOD 02/27/2024 1:17 PM [facility] MCHC 32.3 32.0 - 37.0 g/dL LAB HEMETOLOGY METHOD 02/27/2024 1:17 PM [facility] RDW 14.0 11.0 - 15.0 % LAB HEMETOLOGY METHOD 02/27/2024 1:17 PM [facility] Platelets 148 130 - 400 K/mcL LAB HEMETOLOGY METHOD 02/27/2024 1:17 PM [facility] MPV 12.2(H) 7.0 - 11.0 FL LAB HEMETOLOGY METHOD 02/27/2024 1:17 PM [facility] NRBC 0.0 <1.0 % LAB HEMETOLOGY METHOD 02/27/2024 1:17 PM [facility] NRBC Absolute 0.00 <0.10 K/mcL LAB HEMETOLOGY METHOD 02/27/2024 1:17 PM [facility] Neutrophils Relative 74.9 % LAB HEMETOLOGY METHOD 02/27/2024 1:17 PM [facility] Lymphocytes Relative 16.5 % LAB HEMETOLOGY METHOD 02/27/2024 1:17 PM [facility] Monocytes Relative 5.2 % LAB HEMETOLOGY METHOD 02/27/2024 1:17 PM EST [facility] Eosinophils Relative 2.5 % LAB HEMETOLOGY METHOD 02/27/2024 1:17 PM [facility] Basophils Relative 0.5 % LAB HEMETOLOGY METHOD 02/27/2024 1:17 PM [facility] Immature Granulocytes Relative 0.4 % LAB HEMETOLOGY METHOD 02/27/2024 1:17 PM [facility] Neutrophils Absolute 6.06 1.50 - 7.00 K/mcL LAB HEMETOLOGY METHOD 02/27/2024 1:17 PM [facility] Lymphocytes Absolute 1.33 1.00 - 5.00 K/mcL LAB HEMETOLOGY METHOD 02/27/2024 1:17 PM [facility] Monocytes Absolute 0.42 0.20 - 1.00 K/mcL LAB HEMETOLOGY METHOD 02/27/2024 1:17 PM EST [facility] Eosinophils Absolute 0.20 0.00 - 0.50 K/mcL LAB HEMETOLOGY METHOD 02/27/2024 1:17 PM [facility] Basophils Absolute 0.04 0.00 - 0.20 K/mcL LAB HEMETOLOGY METHOD 02/27/2024 1:17 PM [facility] Immature Granulocytes Absolute 0.03 0.00 - 0.03 K/mcL LAB HEMETOLOGY METHOD 02/27/2024 1:17 PM [facility] Blood Venous blood specimen / Unknown Venipuncture / Unknown 02/27/2024 12:39 PM EST 02/27/2024 1:13 PM EST Magalys Green MD LAB BLOOD ORDERABLES [facility] [address] [place] [address], from Last 3 Months Care Teams Porcelain Slusher Relationship Specialty Start Date End Date Tito Long MD [address] [facility] [address] [place] [address] PCP - General Internal Medicine 03/02/18
--- OUTSIDE RECORDS SUMMARY | 2024-05-23 13:36 | XMS_ITS | Encounter Summary ---
Author Organization [employer] Address [address] [place] [address] Care Team Providers Care Completions Engineer Name Role Phone Tito Long MD Primary Care Provider [phone] Encounter Details Date Type Department Care Team ([facility] st Contact Info) Description 02/27/2024 Lab Requisition [facility] - Main Lab [address] [place] [address] Social History Tobacco Use Types Packs/Day Years [...] file Not on file Not on file documented as of this encounter Plan of Treatment Not on file documented as of this encounter Visit Diagnoses Not on filedocumented in this encounter Care Teams Completions Engineer Relationship Specialty Start Date End Date Tito Long MD [address] [facility] [address] [place] [address] PCP - General Internal Medicine 03/02/18 documented as of this encounter
== END 2024-05-23 14:41 | disposition home or self-care (01) ==
PROVIDERS: PCP Internal Medicine; Visit Provider Internal Medicine
DX: E11.9 Type 2 diabetes mellitus without complications (principal); E78.5 Hyperlipidemia, unspecified; D64.9 Anemia, unspecified; N18.30 Chronic kidney disease, stage 3 unspecified; S82.892A Other fracture of left lower leg, initial encounter for closed fracture

== ENCOUNTER → 2024-05-23 13:21 | Outpatient (BNVA) | payer OTHER, SELFPAY | PROVIDERS: PCP Internal Medicine; Visit Provider Internal Medicine | DX: E11.319 Type 2 diabetes mellitus with unspecified diabetic retinopathy without macular edema (principal); E11.22 Type 2 diabetes mellitus with diabetic chronic kidney disease; I12.9 Hypertensive chronic kidney disease with stage 1 through stage 4 chronic kidney disease, or unspecified chronic kidney disease; N18.30 Chronic kidney disease, stage 3 unspecified; D63.1 Anemia in chronic kidney disease; E78.5 Hyperlipidemia, unspecified; S82.892D Other fracture of left lower leg, subsequent encounter for closed fracture with routine healing; Z79.4 Long term (current) use of insulin | CPT/HCPCS: 96127 ==

== ENCOUNTER 2024-10-10 09:15 | Outpatient (AMB) | payer OTHER, SELFPAY ==
--- NOTE | 2024-10-10 09:22 | A.OFFPC_ITS ---
Vital Signs 10/10/24 09:23 Height 5 ft 10 in Weight 190 lb BMI 27.3 BP 126/74 Blood Pressure Location Lt brachial Position Sitting Respiration 18 Pulse 50 Pulse Source Pulse Oximeter Temp 97.7 F Temp Source Oral Pulse Oximetry (%) 97 Oxygen Delivery Method Room Air Intake Visit Reasons: Diabetic F/U Intake Note: Pt is here today for a follow up visit on DM. Pt states that he needs a refill on Humalog. Allergies No Known Allergies Allergy (Verified 10/10/24 09:26) Medication List - Last Reconciled 10/10/24 by Magalys Green MD aspirin 81 mg PO DAILY dapagliflozin propanediol (Farxiga) 10 mg PO DAILY flash glucose sensor (t-ArtStyle David 14 Day Sensor kit) Test blood sugar 4 times per day, change sensor every 14 days insulin glargine (Lantus Solostar U-100 Insulin) 16 units subcut QPM insulin lispro (Humalog KwikPen (U-100) Insulin) 8 units subcut TID lisinopril 5 mg PO DAILY metformin 500 mg PO BID metoprolol succinate ER 25 mg PO DAILY Mounjaro (tirzepatide) 2.5 mg (0.5 mL) subcut QWEEK NS rosuvastatin 10 mg PO DAILY Tobacco use date assessed: 10/10/24 Fall risk assessment: No Falls in past year Last assessed Fall Risk: 10/10/24 Dental Screening Dental Screen Date: 10/10/24 Did you have a dental visit in the last 12 months?: Yes Did you have a dental problem in the last 6 months where you did not have access to dental care?: No Was dental information given to patient?: Patient has dentist HPI Diabetic F/U HPI Details Patient presents for the follow-up of type 2 diabetes hyperlipidemia chronic kidney disease stage 3. Patient complains of persistent left hand pain when using it, stiffness. unable to make a fist since his carpal tunnel surgery. patient is established with hand surgeon in [facility] Medical History (Updated 10/10/24 @ 11:22 by Magalys Green MD) Anemia CKD (chronic kidney disease) stage 3, GFR 30-59 ml/min DM type 2 (diabetes mellitus, type 2) Hyperlipemia APC (atrial premature contractions) History of varicocele Surgical History History of carpal tunnel surgery Hx of tonsillectomy Family History Father No problems noted. Mother Cancer, Onset Age: 79 Sister Stroke Social History Housing: House Patient Tobacco Use Status: Never used Tobacco e-Cigarette/Vaping Use: Never Used service: No Current occupational status: employed Cognitive needs: No Hearing needs: No Vision needs: Yes Questionnaire Thrive Questionnaire Date Thrive assessed: 05/20/24 I am a: Patient What is your living situation today?: I have a steady place to live Within the past 12 months, did the food you bought not last and you didn't have the money to get more?: Never true Within the past 12 months, did you worry whether your food would run out before you got money to buy more?: Never true Do you have trouble paying for medicines?: No Do you have trouble getting transportation to medical appointments?: No Do you have trouble paying your heating and electricity bill?: No Do you have trouble taking care of your child, family member or friend?: No Do you have trouble with day-to-day activities such as bathing, preparing meals, shopping, managing finances, etc.?: No Are you currently unemployed and looking for a job?: No Are you interested in more education?: No Please select the resources that you would like help with: None Currently or been in a relationship where the following occur: No concerns reported THRIVE Score: 0 KEISHA-7 AMB Questionnaire KEISHA-7 Date KEISHA - 7 assessed: 05/23/24 Source: Developed by Drs. Brendon Mckeon, Sandra Lopez, Dhruv Mcginnis and colleagues, with an educational cristin from [employer]. Review of Systems Const All systems reviewed & are unremarkable except as noted in HPI and below Eyes Reports no additional complaints ENT Reports no additional complaints Card Reports no additional complaints Resp Reports no additional complaints GI Reports no additional complaints Reports no additional complaints Physical exam (Primary Care) Vital Signs: Last Vital Signs Temp 97.7 F 10/10/24 09:23 Pulse 50 10/10/24 09:23 Resp 18 10/10/24 09:23 BP 126/74 10/10/24 09:23 Pulse Ox 97 10/10/24 09:23 Oxygen Delivery Method Room Air 10/10/24 09:23 BMI result Body Mass Index 27.3 Tobacco/Smoking Status: Tobacco use Status Tobacco use date assessed 10/10/24 10/10/24 09:25 Patient Tobacco Use Status Never used Tobacco 10/10/24 09:25 e-Cigarette/Vaping Use Never Used 10/10/24 09:23 Thrive Assessment: Date of Thrive Assessment Date Thrive assessed 05/20/24 10/10/24 09:23 Currently or been in a relationship where the following occur: No concerns reported Const General: no acute distress HENMT Head: Yes normal to inspection Eyes General: appearance normal, both eyes and all related structures Resp Effort & Inspection: normal respiratory effort Auscultation: clear to auscultation bilaterally Cardio Rhythm: regular rhythm Heart sounds: S1 normal heart sound present and S2 normal heart sound present GI Inspection: Yes normal to inspection Palpation (GI): Soft to palpation Percussion: Yes normal to percussion Auscultation: normal bowel sounds Results AMB Hemoglobin A1c AMB Hemoglobin A1c 7.6 % Last Edit by PHOENIX Villasenor on 10/10/24 10:0 4 Results Reviewed Results Reviewed: Laboratory Last Values Hgb A1c (Clinic) 7.6 % (4.0-6.0) H 10/10/24 10:03 Coding Level of Care Code Est Pt Level 4 (06920) Diagnoses DM type 2 (diabetes mellitus, type 2) E11.9 CKD (chronic kidney disease) stage 3, GFR 30-59 ml/min N18.30 Anemia D64.9 Hyperlipemia E78.5 Left hand tendonitis M77.8 Assessment & Plan Assessment & Plan (1) DM type 2 (diabetes mellitus, type 2): Comment: >30 yrs, borderline diabetic retinopathy, ophthalmology exam annually Code(s): E11.9 - Type 2 diabetes mellitus without complications Category: Medical Plan: A1c is 7.6 today, ADA diet increase physical activity discussed with the patient Mounjaro 2.5 mg will be started patient will continue the rest of his medications and return in 3 months with a fasting labs before (2) CKD (chronic kidney disease) stage 3, GFR 30-59 ml/min: Comment: Normal renal ultrasound Code(s): N18.30 - Chronic kidney disease, stage 3 unspecified Category: Medical Plan: Avoid nephrotoxins monitor renal function (3) Anemia: Comment: chronic disease, normal iron studies and B12 level 01/13 Code(s): D64.9 - Anemia, unspecified Category: Medical Plan: Monitor CBC (4) Hyperlipemia: Code(s): E78.5 - Hyperlipidemia, unspecified Category: Medical Plan: Continue statin (5) Left hand tendonitis: Code(s): M77.8 - Other enthesopathies, not elsewhere classified Category: Medical Plan: Follow-up with the hand surgeon and OT Orders: Orders Lipid Panel 3 Months D64.9 - Anemia, unspecified, E11.9 - Type 2 diabetes mellitus without complications, N18.30 - Chronic kidney disease, stage 3 unspecified Hemoglobin A1c 3 Months D64.9 - Anemia, unspecified, E11.9 - Type 2 diabetes mellitus without complications, N18.30 - Chronic kidney disease, stage 3 unspecified Complete Blood Count Auto Diff 3 Months D64.9 - Anemia, unspecified, E11.9 - Type 2 diabetes mellitus without complications, N18.30 - Chronic kidney disease, stage 3 unspecified Microalbumin, Random (w Creat) 3 Months D64.9 - Anemia, unspecified, E11.9 - Type 2 diabetes mellitus without complications, N18.30 - Chronic kidney disease, stage 3 unspecified AMB Hemoglobin A1c Today Z13.9 - Encounter for screening, unspecified Comprehensive [place]. Panel Fast 3 Months D64.9 - Anemia, unspecified, E11.9 - Type 2 diabetes mellitus without complications, N18.30 - Chronic kidney disease, stage 3 unspecified Medications: New Mounjaro (tirzepatide) 2.5 mg (0.5 mL) subcut QWEEK 2 mL 4RF NS insulin lispro (Humalog KwikPen (U-100) Insulin) 8 units (0.08 mL) subcut TID 15 mL 3RF Changed From insulin glargine (Lantus Solostar U-100 Insulin) 12 units (0.12 mL) subcut QPM 15 mL 2RF To insulin glargine (Lantus Solostar U-100 Insulin) 16 units subcut QPM
[2024-10-10 09:23] VITALS: BP 126/74; PULSE 50; RESP 18; TEMP 36.5; O2SAT 97; BMI 27.3
--- OUTSIDE RECORDS SUMMARY | 2024-10-10 09:34 | XMS_ITS | Data Portability ---
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 X-rays were compared to previous from [facility]. Previous imaging did not clearly demonstrate the [...] examination, recommended tests/diagnostic imaging, and treatment plan. [email or web address] Not available 04/02/2024 13:56:56 05/01/2024 05/01/2024 We [...] improve their function. Not available 05/03/2024 14:13:11 06/12/2024 06/12/2024 He is now approximately 2 and half months from his left distal fibula fracture. He is overall doing well. We discussed that swelling would be ongoing for approximately 6 months or so from his ankle fracture. He may gradually advance his activities as he is able. He does not have any limitations. He may follow-up with me as needed. Not available 06/14/2024 08:20:41 Plan of Treatment Reminders Order Date Submit Date Provider Last Modified By Organization Details Last Modified Time Details Appointments None record ed. Lab None record ed. Referral None record ed. Procedures None record ed. Surgeries None record ed. Imaging XR, ankle, 3 or more view 025 06/12/19 25 [facility], [address], [address], [place], [address], 5 17:01:28 XR, ankle, 3 or more view 025 05/01/19 25 [facility], [address], [place], [address], 5 18:35:17 XR, ankle, 3 or more view 024 04/02/20 24 [email or web address] 1 [facility], [address], [address], [place], [address], 4 08:40:59 Medication Orders None record ed. Patient TargetsNo targets recorded. Patient Instructions Encounter Date Encounter Id Patient Instructions Last Modified By Organization Details Last Modified Time 04/02/2024 [id number] views of the left ankle were obtained in the [place] office on 04/02/2024 including weightbearing AP lateral and mortise compared to outside imaging from [facility]. X-rays demonstrated an oblique nondisplaced fracture to the left distal fibula at the level of the mortise. Vascular calcifications. No other fracture noted. Impression: Lovelace B fracture left distal fibula. Images interpreted by: Handy Zazueta PA-C [email or web address] Not available 04/02/2024 13:47:33 05/01/2024 [id number] views of the left ankle obtained weightbearing on 05/01/2024 demonstrate a Lovelace B nondisplaced fibula fracture. The mortise remains congruent. Not available 05/03/2024 14:12:09 06/12/2024 [id number] views of the left ankle obtained weightbearing on 06/12/2024 demonstrate a nondisplaced distal fibula fracture with interval healing. The mortise remains congruent Not available 06/14/2024 08:20:59 Reason for Referral None Reported. Problems Name Problem SNOMED Code Status Onset Date Resolution Date Notes Provider Name and Address Organization Details Recorded Time Closed fracture of distal fibula 467846530 Active 024 HANDY ZAZUETA PA-C [address], [place], [address] , [place] [facility] 13:44:26 Problem Notes None recorded. Procedures Surgical History Date Name Laterality Status Provider Name and Address Organization Details Recorded Time repair of varicocele completed Vale Ortiz [place] [facility] 04/02/2024 14:07:03 Imaging Results None recorded. [...] 2nd Gen Pen Needle 32 gauge x 5/32 USE DIRECTED WITH HUMALOG AND LANTUS 4 TIMES A DAY active Not Available Not Available No t Available Vitals Date Recorded Body height Body mass index (BMI) Body weight Provider Name and Address Organization Details Last Updated DateTime 05/01/2024 177.8 cm 27.3 kg/m2 49310.55 g Emily Cummins [facility] 05/01/2024 16:14:25 Date Recorded Body height Body mass index (BMI) Body weight Provider Name and Address Organization Details Last Updated DateTime 06/12/2024 177.8 cm 27.3 kg/m2 42312.55 g Zacarias Pineda [place] [facility] 06/12/2024 15:47:38 Date Recorded Body height Body mass index (BMI) Body weight Provider Name and Address Organization Details Last Updated DateTime 04/02/2024 177.8 cm 27.3 kg/m2 08637.55 g Vale Ortiz [facility] 04/02/2024 14:05:37 Social History Question Answer Notes LastModified by Organizat ion Details LastModified Time Tobacco Smoking Status Never Smoker Vale galvan, [facility] 04/02/2024 14:06:48 Are You Currently In School? No [email or web address] Information not available 05/01/2024 Sex: Unknown Functional Status Question Answer Note LastModified by Organizat ion Details LastModified Time How many times per week do you consume alcohol? 1-2 times per week 1 beer a week Information not available 04/02/2024 Do you use any illicit or recreational drugs? No Information not available 04/02/2024 Do you or have you ever used any other forms of tobacco or nicotine? No Information not available 04/02/2024 What is your level of alcohol consumption? Occasional Information not available 04/02/2024 Mental Status None recorded. Family History Relationship Description Onset Age of this Age Resolved Age Notes LastModified by Organization Details LastModified Time Sister Blood coagulation disorder [email or web address] Not available 2023 14:05:54 Mother History of [...] Anemia N Brain Injury N Heart Attack (CA) N Osteopenia N Diabetes Y Bleeding Disorder N Seizures/Epilepsy N AIDS/HIV N Congestive Heart Failure (CHF) N Asthma N Amputation N Reflux/GERD N Sleep Apnea N Hepatitis N Aneurysm N Heart Disease N Pulmonary Embolism N Hypertension N Osteoporosis N Past Encounters Encounter ID Performer Location Encounter Start Date Encounter Closed Date Diagnosis/Indication Diagnosis SNOMED-CT Code Diagnosis ICD10 Code Diagnosis Note [id number] HANDY ZAZUETA PA-C [facility] [address] [place] [address] 9 04/02/2024 12:55:27 04/02/2024 13:53:52 Ankle pain 234014165 M25.572 Closed fra cture of distal fibula 501471847 S82.832A [id number] MD JEFF Quezada [address] [place] [address] 9 05/01/2024 15:43:53 05/01/2024 17:09:10 Closed fracture of distal fibula 162992302 S82.832A [id number] MD JEFF Quezada [address] [place] [address] 06/12/2024 15:45:04 06/12/2024 16:35:53 Closed fracture of distal fibula 657089708 S82.832A Health Concerns Section Related Observation LastModified by Organization Detai ls LastModified Time None Recorded Concern Status LastModified by Organization Details LastModified Time None Recorded Advance Directives Directive None Recorded Payers Insurance Date Sequence Insurance Name Policy Number Policy Dobbs Covered Member ID Dobbs Member ID Guarantor Name 06/16/2024 1 [employer] [id number] Kamaljit Angel Gupta [id number] Kamaljit Leighman 05/01/2024 2 MEDICARE [place]: NGS Kamaljit Gupta [id number] Kamaljit Gupta Notes Date Note Type Note Provider Name and Address Organization Details Recorded Time 04/02/2024 text/html 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 He slipped down a few steps on Sunday. He had swelling in his ankle and went to [facility] ER. X-rays were obtained. Initially, there was question of a fracture, but eventually read as negative. He was given an Aircast and has been ambulating as tolerated with pain. He had ongoing pain and swelling. He presents today for orthopedic urgent care evaluation. He had ongoing pain and swelling. No numbness or tingling. 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 Past medical history significant for type 2 diabetes, chronic kidney disease stage III. 1 beer per day, denies recreational drug use or tobacco use. 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 He was wearing the boot but transitioned out of this into an Aircast. He reports ongoing swelling. His pain is aching and a 2-5 out of 10. It is mild and intermittent and improving. He takes Tylenol without significant improvement. 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 He slipped down a few steps on Sunday. He had swelling in his ankle and went to [facility] ER. X-rays were obtained. Initially, there was question of a fracture, but eventually read as negative. He was given an Aircast and has been ambulating as tolerated with pain. He had ongoing pain and swelling. He presents today for orthopedic urgent care evaluation. He had ongoing pain and swelling. No numbness or tingling. 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 Past medical history significant for type 2 diabetes, chronic kidney disease stage III. 1 beer per day, denies recreational drug use or tobacco use. 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 He reports that his pain is aching and a 1-3 out of 10. He does have some ongoing pain with weightbearing. He has attended approximately 4 weeks of physical therapy. He feels like he is making improvements. 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 He was wearing the boot but transitioned out of this into an Aircast. He reports ongoing swelling. His pain is aching and a 2-5 out of 10. It is mild and intermittent and improving. He takes Tylenol without significant improvement. 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 He slipped down a few steps on Sunday. He had swelling in his ankle and went to [facility] ER. X-rays were obtained. Initially, there was question of a fracture, but eventually read as negative. He was given an Aircast and has been ambulating as tolerated with pain. He had ongoing pain and swelling. He presents today for orthopedic urgent care evaluation. He had ongoing pain and swelling. No numbness or tingling. 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 Past medical history significant for type 2 diabetes, chronic kidney disease stage III. 1 beer per day, denies recreational drug use or tobacco use. Jess Allen MD [address], [place], [address], [place] [facility] 06/14/2024 08:21:11
== END 2024-10-10 10:10 | disposition home or self-care (01) ==
LOC: HO.HMCC 09:15
PROVIDERS: PCP Internal Medicine; Visit Provider Internal Medicine
DX: E11.9 Type 2 diabetes mellitus without complications (principal); N18.30 Chronic kidney disease, stage 3 unspecified; D64.9 Anemia, unspecified; E78.5 Hyperlipidemia, unspecified; M77.8 Other enthesopathies, not elsewhere classified; Z13.9 Encounter for screening, unspecified

== ENCOUNTER → 2024-10-10 09:15 | Outpatient (BNVA) | payer OTHER, SELFPAY | PROVIDERS: PCP Internal Medicine; Visit Provider Internal Medicine | DX: E11.22 Type 2 diabetes mellitus with diabetic chronic kidney disease (principal); N18.30 Chronic kidney disease, stage 3 unspecified; D64.9 Anemia, unspecified; E78.5 Hyperlipidemia, unspecified; M77.8 Other enthesopathies, not elsewhere classified | CPT/HCPCS: 83036 ==

== ENCOUNTER 2025-02-09 12:23 | Outpatient (AMB) | payer OTHER, SELFPAY ==
[2025-02-09 12:37] VITALS: BP 104/60; PULSE 62; RESP 16; TEMP 36.7; O2SAT 95; BMI 25.8
--- NOTE | 2025-02-09 12:37 | A.OFFPC_ITS ---
Vital Signs 02/09/25 12:37 Height 5 ft 10 in Weight 180 lb BMI 25.8 BP 104/60 Blood Pressure Location Lt brachial Position Sitting Respiration 16 Pulse 62 Pulse Source Pulse Oximeter Temp 98.1 F Temp Source Oral Pulse Oximetry (%) 95 Oxygen Delivery Method Room Air Intake Visit Reasons: 6m follow up, resched Intake Note: Pt is here today for 6 months follow up visit on DM. Allergies No Known Allergies Allergy (Verified 10/10/24 09:26) Medication List - Last Reconciled 02/09/25 by Magalys Green MD aspirin 81 mg PO DAILY dapagliflozin propanediol (Farxiga) 10 mg PO DAILY flash glucose sensor ([employer] David 14 Day Sensor kit) Test blood sugar 4 times per day, change sensor every 14 days insulin glargine (Lantus Solostar U-100 Insulin) 14 units subcut QPM insulin lispro (Humalog KwikPen (U-100) Insulin) 8 units (0.08 mL) subcut TID lisinopril 5 mg PO DAILY metformin 500 mg PO BID metoprolol succinate ER 25 mg PO DAILY Mounjaro (tirzepatide) 2.5 mg (0.5 mL) subcut QWEEK NS rosuvastatin 10 mg PO DAILY Tobacco use date assessed: 02/09/25 Fall risk assessment: No Falls in past year Last assessed Fall Risk: 02/09/25 Dental Screening Dental Screen Date: 10/10/24 HPI 6m follow up, resched HPI Details Patient presents for the follow-up of type 2 diabetes hypertension hyperlipidemia chronic kidney disease stage III. Patient has been tolerating 2.5 mg of Mounjaro [facility] Medical History Anemia CKD (chronic kidney disease) stage 3, GFR 30-59 ml/min DM type 2 (diabetes mellitus, type 2) Hyperlipemia APC (atrial premature contractions) History of varicocele Surgical History History of carpal tunnel surgery Hx of tonsillectomy Family History Father No problems noted. Mother Cancer, Onset Age: 79 Sister Stroke Social History Housing: House Patient Tobacco Use Status: Never used Tobacco e-Cigarette/Vaping Use: Never Used service: No Current occupational status: employed Cognitive needs: No Hearing needs: No Vision needs: Yes Questionnaire Thrive Questionnaire Date Thrive assessed: 05/20/24 I am a: Patient What is your living situation today?: I have a steady place to live Within the past 12 months, did the food you bought not last and you didn't have the money to get more?: Never true Within the past 12 months, did you worry whether your food would run out before you got money to buy more?: Never true Do you have trouble paying for medicines?: No Do you have trouble getting transportation to medical appointments?: No Do you have trouble paying your heating and electricity bill?: No Do you have trouble taking care of your child, family member or friend?: No Do you have trouble with day-to-day activities such as bathing, preparing meals, shopping, managing finances, etc.?: No Are you currently unemployed and looking for a job?: No Are you interested in more education?: No Please select the resources that you would like help with: None Currently or been in a relationship where the following occur: No concerns reported THRIVE Score: 0 KEISHA-7 AMB Questionnaire KEISHA-7 Date KEISHA - 7 assessed: 05/23/24 Source: Developed by Drs. Brendon Mckeon, Sandra Lopez, Dhruv Mcginnis and colleagues, with an educational cristin from [employer]. Review of Systems Const All systems reviewed & are unremarkable except as noted in HPI and below Eyes Reports no additional complaints ENT Reports no additional complaints Card Reports no additional complaints Resp Reports no additional complaints GI Reports no additional complaints Reports no additional complaints Physical exam (Primary Care) Vital Signs: Last Vital Signs Temp 98.1 F 02/09/25 12:37 Pulse 62 02/09/25 12:37 Resp 16 02/09/25 12:37 BP 104/60 02/09/25 12:37 Pulse Ox 95 02/09/25 12:37 Oxygen Delivery Method Room Air 02/09/25 12:37 BMI result Body Mass Index 25.8 Tobacco/Smoking Status: Tobacco use Status Tobacco use date assessed 02/09/25 02/09/25 12:44 Patient Tobacco Use Status Never used Tobacco 02/09/25 12:38 e-Cigarette/Vaping Use Never Used 02/09/25 12:38 Thrive Assessment: Date of Thrive Assessment Date Thrive assessed 05/20/24 02/09/25 12:38 Currently or been in a relationship where the following occur: No concerns reported Const General: no acute distress HENMT Head: Yes normal to inspection Ears: TM's normal bilaterally Mouth: Normal oral and palatal mucosa present Throat: Yes posterior oropharynx normal Eyes General: appearance normal, both eyes and all related structures Neck Neck: Yes no lymphadenopathy and Yes supple Resp Effort & Inspection: normal respiratory effort Auscultation: clear to auscultation bilaterally Cardio Rhythm: regular rhythm Heart sounds: S1 normal heart sound present and S2 normal heart sound present GI Inspection: Yes normal to inspection Palpation (GI): Soft to palpation Percussion: Yes normal to percussion Auscultation: normal bowel sounds Extrem Other: Diabetic foot exam skin is intact monofilament and vibration sensation intact bilaterally Coding Level of Care Code Est Pt Level 4 (70841) Diagnoses CKD (chronic kidney disease) stage 3, GFR 30-59 ml/min N18.30 DM type 2 (diabetes mellitus, type 2) E11.9 Hyperlipemia E78.5 Anemia D64.9 Assessment & Plan Assessment & Plan (1) CKD (chronic kidney disease) stage 3, GFR 30-59 ml/min: Comment: Normal renal ultrasound Code(s): N18.30 - Chronic kidney disease, stage 3 unspecified Category: Medical Plan: Avoid nephrotoxins monitor renal function (2) DM type 2 (diabetes mellitus, type 2): Comment: >30 yrs, borderline diabetic retinopathy, ophthalmology exam annually Code(s): E11.9 - Type 2 diabetes mellitus without complications Category: Medical Plan: A1c is 7.5. ADA diet increasing regular exercise discussed with the patient . He will continue current medications and follow-up in 3 months with a fasting labs before (3) Hyperlipemia: Code(s): E78.5 - Hyperlipidemia, unspecified Category: Medical Plan: Continue statin (4) Anemia: Comment: chronic disease, normal iron studies and B12 level 01/13 Code(s): D64.9 - Anemia, unspecified Category: Medical Plan: Monitor CBC Orders: Orders Microalbumin, Random (w Creat) 4 Months D64.9 - Anemia, unspecified, E11.9 - Type 2 diabetes mellitus without complications, E78.5 - Hyperlipidemia, unspecified, N18.30 - Chronic kidney disease, stage 3 unspecified IRON PROFILE 4 Months D64.9 - Anemia, unspecified, E11.9 - Type 2 diabetes mellitus without complications, E78.5 - Hyperlipidemia, unspecified, N18.30 - Chronic kidney disease, stage 3 unspecified Comprehensive [place]. Panel Fast 4 Months D64.9 - Anemia, unspecified, E11.9 - Type 2 diabetes mellitus without complications, E78.5 - Hyperlipidemia, unspecified, N18.30 - Chronic kidney disease, stage 3 unspecified Complete Blood Count Auto Diff 4 Months D64.9 - Anemia, unspecified, E11.9 - Type 2 diabetes mellitus without complications, E78.5 - Hyperlipidemia, unspecified, N18.30 - Chronic kidney disease, stage 3 unspecified Hemoglobin A1c 4 Months D64.9 - Anemia, unspecified, E11.9 - Type 2 diabetes mellitus without complications, E78.5 - Hyperlipidemia, unspecified, N18.30 - Chronic kidney disease, stage 3 unspecified Lipid Panel 4 Months D64.9 - Anemia, unspecified, E11.9 - Type 2 diabetes mellitus without complications, E78.5 - Hyperlipidemia, unspecified, N18.30 - Chronic kidney disease, stage 3 unspecified Medications: Changed From insulin glargine (Lantus Solostar U-100 Insulin) 16 units (0.16 mL) subcut QPM 15 mL 2RF E11.9 - Type 2 diabetes mellitus without complications To insulin glargine (Lantus Solostar U-100 Insulin) 14 units subcut QPM E11.9 - Type 2 diabetes mellitus without complications
== END 2025-02-09 13:52 | disposition home or self-care (01) ==
LOC: HO.HMCC 12:24
PROVIDERS: PCP Internal Medicine; Visit Provider Internal Medicine
DX: N18.30 Chronic kidney disease, stage 3 unspecified (principal); E11.9 Type 2 diabetes mellitus without complications; E78.5 Hyperlipidemia, unspecified; D64.9 Anemia, unspecified